=== PATIENT | male | born 1960 | race Caucasian/White ===

== ENCOUNTER 2017-01-18 15:06 | Inpatient (IN) | payer OTHER ==
[~2017-01-18] VITALS: Ht 182.9 cm; Wt 89.1 kg
--- NOTE | 2017-01-18 15:20 | ERD ---
ER Documentation Chief Complaint Chief Complaint Chest pain HPI This is a 56-year-old man with a history of hypertension, hyperlipidemia, coronary artery disease with previous TX status post stenting this year on aspirin and Plavix, intermittent recurrent chest pain and dyspnea that is causing him significant distress, who is now presenting with acute onset nonradiating moderate 6 out of 10 left-sided chest pain that began in the last day. He went to his clinic where an EKG was completed. There is concern of cardiac pathology. The patient was given full dose aspirin and an ambulance was called. Upon EMS arrival, the patient was also given 2 nitro sprays which brought his pain down from a 6 out of 10 to a 1 out of 10. The patient does also report dyspnea at rest that worsens with exertion. This is been ongoing since his heart attack. The patient denies feeling sick recently. The patient denies fever or chills. The patient has had no headache or vision changes. The patient does not endorse neck or back pain. The patient denies lightheadedness or dizziness. The patient denies nausea or vomiting. The patient denies abdominal pain or changes to bowel movements or urination. The patient has had no focal deficits. The patient has had no weakness or numbness or tingling to the face or extremities. ROS All systems reviewed and are negative except as per history of present illness. Allergies Allergies: Coded Allergies: Penicillins (Verified Allergy, Unknown, 01/18/17) PMhx/Soc History of Surgery: Yes (Cardiac stenting) Anesthesia Reaction: No Hx Neurological Disorder: No Hx Respiratory Disorders: Yes (pulmonary nodules) Hx Cardiac Disorders: Yes (Coronary artery disease, hypertension, hyperlipidemia) Hx Psychiatric Problems: No Hx Miscellaneous Medical Probl: No FmHx Family History: coronary disease Physical Exam Vitals Vital Signs Date Time Temp Pulse Resp B/P Pulse Ox O2 Delivery O2 Flow Rate FiO2 01/18/17 18:28 98.2 57 17 111/74 99 Nasal Cannula 01/18/17 16:15 59 16 116/75 97 Room Air 01/18/17 15:32 Nasal Cannula 2 01/18/17 15:31 98.1 75 16 126/74 96 Physical Exam Const: No apparent distress, well-developed, well-nourished Head: Normocephalic, Atraumatic Eyes: Normal Conjunctiva. Extraocular movements intact. Pupils equal, round and reactive to light ENT: Normal External Ears, Nose and Mouth. Neck: Full range of motion. No meningismus. Resp: Clear to auscultation bilaterally, No wheezes, rales or rhonchi Cardio: Regular rate and rhythm. No murmurs, rubs or gallops Abd: Soft, non tender, non distended. Normal bowel sounds Skin: No petechiae or rashes Back: No midline tenderness. No CVA tenderness Ext: No cyanosis, or edema Neur: Awake and alert, oriented 4. Cranial nerves intact. No facial droop. Normal strength, sensation and coordination. Psych: Normal Mood and Affect Result Diagram: 01/18/17 1520 01/18/17 1520 Results 24 hrs Laboratory Tests Test 01/18/17 15:20 White Blood Count 7.110^3/ul Red Blood Count 4.9610^6/ul Hemoglobin 16.3g/dl Hematocrit 47.1% Mean Corpuscular Volume 95.0fl Mean Corpuscular Hemoglobin 32.9pg Mean Corpuscular Hemoglobin Concent 34.6g/dl Red Cell Distribution Width 12.8% Platelet Count 02260^3/UL Mean Platelet Volume 10.4fl Neutrophils % 65.8% Lymphocytes % 27.2% Monocytes % 5.0% Eosinophils % 1.1% Basophils % 0.6% Nucleated Red Blood Cells % 0.0/100WBC Neutrophils # 4.710^3/ul Lymphocytes # 1.910^3/ul Monocytes # 0.410^3/ul Eosinophils # 0.110^3/ul Basophils # 0.010^3/ul Nucleated Red Blood Cells # 0.010^3/ul Prothrombin Time 12.1Sec Prothrombin Time Ratio 0.9 INR International Normalized Ratio 0.90 Activated Partial Thromboplast Time 24.9Sec Sodium Level 140mmol/L Potassium Level 4.0mmol/L Chloride Level 105mmol/L Carbon Dioxide Level 26mmol/L Anion Gap 13 Blood Urea Nitrogen 15mg/dl Creatinine 0.92mg/dl Glucose Level 88mg/dl Calcium Level 8.9mg/dl Total Bilirubin 0.4mg/dl Direct Bilirubin 0.00mg/dl Indirect Bilirubin 0.4mg/dl Aspartate Amino Transf (AST/SGOT) 29IU/L Alanine Aminotransferase (ALT/SGPT) 49IU/L Alkaline Phosphatase 79IU/L Troponin I < 0.012ng/ml B-Type Natriuretic Peptide 786PG/ML Total Protein 6.7g/dl Albumin 4.0g/dl Globulin 2.70g/dl Albumin/Globulin Ratio 1.48 Valproic Acid (Depakene) Level < 10ug/ml Current Medications Medications (Trade) Dose Ordered Sig/Zi Route PRN Reason Start Time Stop Time Status Last Admin Dose Admin Ondansetron HCl (Zofran Inj) 4 mg ER BRIDGE PRN IV NAUSEA AND/OR VOMITING 01/18/17 18:00 01/19/17 17:59 Acetaminophen 650 mg 650 mg ER BRIDGE PRN PO MILD PAIN/FEVER 01/18/17 18:00 01/19/17 17:59 Sodium Chloride (NS) 1,000 ml @ 50 mls/hr Q20H IV 01/18/17 18:08 01/18/17 19:02 IV Flush (NS 3 ml) 3 ml PER PROTOCOL IV 01/18/17 18:30 Ondansetron HCl (Zofran Inj) 4 mg Q6H PRN IV NAUSEA AND/OR VOMITING 01/18/17 18:30 Aspirin (Aspirin) 81 mg DAILY PO 01/19/17 09:00 Clopidogrel Bisulfate (plaVIX) 75 mg DAILY PO 01/18/17 18:30 01/18/17 19:02 Nitroglycerin (Nitroglycerin (Sl Tab) 0.4 Mg) 1 tab Q5M PRN SL CHEST PAIN 01/18/17 18:30 Acetaminophen (Tylenol Tab) 650 mg Q6H PRN PO PAIN LEVEL 1-3 OR FEVER 01/18/17 18:30 Acetaminophen/ Hydrocodone Bitart ([place] (5/325)) 1 tab Q6H PRN PO PAIN LEVEL 4-6 01/18/17 18:30 Morphine Sulfate (morphine) 2 mg Q4H PRN IV PAIN LEVEL 7-10 01/18/17 18:30 Docusate Sodium (Colace) 100 mg Q12H PRN PO CONSTIPATION 01/18/17 18:30 Bisacodyl (Dulcolax) 5 mg DAILY PRN PO CONSTIPATION 01/18/17 18:30 Pantoprazole (Protonix Tab) 40 mg DAILY@06 PO 01/19/17 06:00 Enoxaparin Sodium (Lovenox) 40 mg DAILY SC 01/19/17 09:00 Lisinopril (Zestril) 5 mg DAILY PO 01/18/17 18:30 Metoprolol Tartrate (Lopressor) 25 mg BID PO 01/18/17 21:00 Atorvastatin Calcium (Lipitor) 80 mg HS PO 01/18/17 21:00 Escitalopram Oxalate (Lexapro) 20 mg DAILY PO 01/19/17 09:00 Gabapentin (Neurontin) 300 mg TID PO 01/18/17 21:00 Albuterol/ Ipratropium (Duoneb) 3 ml Q6HWA RESP THERAPY HHN 01/18/17 20:00 Albuterol/ Ipratropium (Duoneb) 3 ml Q2H RESP THERAPY PRN HHN sob/wheezing 01/18/17 18:30 Procedures/MDM MDM The patient's presentation warrants further investigation. He requires a cardiac exam. He was already given full dose aspirin prior to arrival. He is also given nitro sprays with resolution of his symptoms. I do not believe that any further medical intervention is required emergently. However, the workup needs to be obtained which may change this disposition. LABS The patient's blood work was obtained and reviewed. The patient's CBC shows no leukocytosis and no left shift. The patient is afebrile and does not appear systemically ill. I do not suspect a systemic infection. The patient is not anemic today. The patient's platelet count is unremarkable. The patient's CMP shows no signs of metabolic or electrolyte emergencies. The patient has unremarkable renal and hepatic function testing. The patient's troponin is negative. The patient's BNP is mildly elevated, but I have low suspicion for heart failure. The patient does not have any rales clinically. There is no evidence of heart failure on x-ray. EKG Initial EKG read by me at 15:15: Rate/Rhythm: Normal rate, sinus rhythm with occasional PVCs and fusion complexes at 74 bpm. Intervals: Normal [place]: Normal Impression: Concern of biphasic T waves in V2 and V3, no previous EKG to compare to. EKG read by me at 16:54: Rate/Rhythm: Normal rate, sinus rhythm with occasional PVCs and fusion complexes at 74 bpm. Intervals: Normal [place]: Normal Impression: Concern of biphasic T waves in V2-4, but mostly unchanged from previous EKG performed today. IMAGING CXR There is mild atelectasis at the lung bases. Lungs are otherwise clear. The heart size is normal. There is no pleural effusion. There is no pneumothorax. Mild atelectasis at the lung bases. Otherwise unremarkable chest radiograph. Electronically viewed and signed by .Ihsan Gandhi MD, on 01/18/2017 15:44 TREATMENT/DISPOSITION Patient had already been given aspirin and nitro prior to arrival with significant improvement of his symptoms. At this time, I placed the patient's heart score at 5 for age, risk factors, moderate suspicion and nonspecific repolarization changes on the EKG. Unfortunately, I do not have any EKGs from his previous cardiac event to compare to. I did discuss the findings with Dr. Toledo, the print line tailer, who evaluated the initial EKG and felt that it represented likely old changes. However, she agreed that this required further evaluation in the hospital. I do not feel that the patient requires heparin or any further anticoagulation at this time. Serial EKGs and troponins will likely be required in the hospital. A cardiology consult will also be needed. This will be completed by the admitting service. At this time, I feel that the patient requires admission for further evaluation and management. The patient will be admitted to panel in accordance with the patient's insurance. The patient was accepted by Dr. Gordon John at 1744 on January 18, 2017. The patient's blood pressure was elevated at greater than 120/80 while in the emergency department. This did improve on its own. This may be further evaluated in the hospital. CRITICAL CARE NOTE Time: 30 minutes excluding all billable procedures. Treatments/Evaluations: Evaluation of the patient's medical record including previous records & current laboratory/imaging studies, close monitoring, potential interventions if hemodynamically unstable or cardiopulmonary decline or neurologic decline, maintaining tight fluid balance, any discussions with the family regarding the patient's status and prognosis. Disclaimer: Inadvertent spelling and grammatical errors are likely due to EHR/ dictation software use and do not reflect on the overall quality of patient care. Note that the electronic time recorded on this note does not necessarily reflect the actual time of the patient encounter. Departure Diagnosis: Primary Impression: Chest pain Chest pain type: unspecified Qualified Code: R07.9 - Chest pain, unspecified type Additional Impressions: History of myocardial infarction less than 8 weeks Dyspnea Dyspnea type: shortness of breath Qualified Code: R06.02 - Shortness of breath SAMSON (dyspnea on exertion) Condition: Serious JOSE HENDRICKSON MD Jan 18, 2017 15:20
[2017-01-18 15:31] VITALS: Ht 182.9 cm; Wt 89.1 kg
--- NOTE | 2017-01-18 15:44 | RADRPT ---
PROCEDURE: XR Chest. CLINICAL INDICATION: Chest pain. TECHNIQUE: Single frontal view. COMPARISON: None. FINDINGS: There is mild atelectasis at the lung bases. Lungs are otherwise clear. The heart size is normal. There is no pleural effusion. There is no pneumothorax. IMPRESSION: 1. Mild atelectasis at the lung bases. 2. Otherwise unremarkable chest radiograph. RPTAT: QQ .Ihsan Gandhi MD, MD Date Time Electronically viewed and signed by .Ihsan Gandhi MD, on 01/18/2017 15:44 .R/
[2017-01-18 15:47] LABS: BASOPHILS % 0.6 % (0.0-2.0); EOSINOPHILS # 0.1 10^3/ul (0.0-0.5); EOSINOPHILS % 1.1 % (0.0-7.0); HEMATOCRIT 47.1 % (42.0-52.0); HEMOGLOBIN 16.3 g/dl (14.0-18.0); LYMPHOCYTES # 1.9 10^3/ul (0.8-2.9); LYMPHOCYTES % 27.2 % (15.0-51.0); MEAN CORPUSCULAR HEMOGLOBIN 32.9 pg (29.0-33.0); MEAN CORPUSCULAR HGB CONC 34.6 g/dl (32.0-37.0); MEAN PLATELET VOLUME 10.4 fl (7.4-10.4); MONOCYTE # 0.4 10^3/ul (0.3-0.9); NEUTROPHIL # 4.7 10^3/ul (1.6-7.5); NEUTROPHILS % 65.8 % (39.0-77.0); PLATELET COUNT 200 10^3/UL (140-415); RED BLOOD COUNT 4.96 10^6/ul (4.70-6.10); RED CELL DISTRIBUTION WIDTH 12.8 % (11.5-14.5); WHITE BLOOD COUNT 7.1 10^3/ul (4.8-10.8)
[2017-01-18 16:13] LABS: ALANINE AMINOTRANSFERASE 49 IU/L (13-69); ALBUMIN/GLOBULIN RATIO 1.48; ALKALINE PHOSPHATASE 79 IU/L (42-121); ANION GAP 13 (8-16); ASPARTATE AMINO TRANSFERASE 29 IU/L (15-46); BILIRUBIN,INDIRECT 0.4 mg/dl (0-1.1); BILIRUBIN,TOTAL 0.4 mg/dl (0.2-1.3); BLOOD UREA NITROGEN 15 mg/dl (7-20); CALCIUM 8.9 mg/dl (8.4-10.2); CARBON DIOXIDE 26 mmol/L (21-31); CHLORIDE 105 mmol/L (97-110); CREATININE 0.92 mg/dl (0.61-1.24); GLUCOSE 88 mg/dl (70-220); SODIUM 140 mmol/L (135-144); TOTAL PROTEIN 6.7 g/dl (6.1-8.1)
[2017-01-18 16:24] LABS: B-TYPE NATRIURETIC PEPTIDE 786 PG/ML (0-125)
[2017-01-18 16:35] LABS: TROPONIN-I < 0.012 ng/ml (0.00-0.12)
[2017-01-18 16:44] LABS: INR 0.9; PARTIAL THROMBOPLASTIN TIME 24.9 Sec (25.0-35.0); PROTIME 12.1 Sec (12.2-14.2); PT RATIO 0.9
[2017-01-18] MEDS ORDERED: ACETAMINOPHEN 325 MG TAB PO PRN ×2 (18:00→18:30)
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
[2017-01-18 18:28] VITALS: TEMP 98.2
[2017-01-18] MEDS ORDERED: BISACODYL (EC) 5 MG TAB PO PRN (18:30)
[2017-01-18] MEDS ORDERED: morphine 2 MG INJ IV PRN (18:30)
[2017-01-18] MEDS ORDERED: NACL 0.9% 3 ML SYG IV SCH (18:30)
[2017-01-18] MEDS ORDERED: ONDANSETRON 4 MG INJ IV PRN (18:30)
[2017-01-18] MEDS ORDERED: ALBUTEROL/IPRATROPIUM (NEB) 3 ML AMP HHN PRN (18:30)
[2017-01-18] MEDS ORDERED: NITROGLYCERIN (SL) 0.4 MG TAB SL PRN (18:30)
[2017-01-18] MEDS ORDERED: DOCUSATE SODIUM 100 MG CAP PO PRN (18:30)
[2017-01-18] MEDS ORDERED: HYDROCODONE/APAP (5/325) TAB PO PRN (18:30)
[2017-01-18] MEDS: SOD CHLORIDE 0.9% 1,000 ML IV SCH (19:02)
[2017-01-18] MEDS: CLOPIDOGREL 75 MG TAB PO SCH (19:02)
[2017-01-18 19:30] VITALS: BP 129/84; PULSE 62; RESP 16
[2017-01-18] MEDS ORDERED: ATOR80TA75 PO (19:31)
[2017-01-18] MEDS ORDERED: LISI-313 PO (19:31)
[2017-01-18] MEDS ORDERED: GABA300C16 PO (19:31)
[2017-01-18] MEDS ORDERED: SIMV20TA PO (19:31)
[2017-01-18] MEDS ORDERED: METO-448 PO (19:31)
[2017-01-18] MEDS ORDERED: OMEP20CA16 PO (19:31)
[2017-01-18] MEDS ORDERED: IBUP-1542 PO (19:31)
[2017-01-18] MEDS ORDERED: ESCI20TA38 PO (19:31)
[2017-01-18 20:00] VITALS: PULSE 59
[2017-01-18] MEDS: ALBUTEROL/IPRATROPIUM (NEB) 3 ML AMP HHN SCH (20:21)
[2017-01-18] MEDS: METOPROLOL 25 MG TAB PO SCH (21:00)
[2017-01-18] MEDS ORDERED: AL HYDROX/MG HYDROX/SIMETH 30 ML CUP PO ONE (21:30)
[2017-01-18] MEDS: GABAPENTIN 300 MG CAP PO SCH (21:55)
[2017-01-18] MEDS: LISINOPRIL 5 MG TAB PO SCH (21:55)
[2017-01-18] MEDS: ATORVASTATIN 80 MG TAB PO SCH (22:25)
[2017-01-18 23:29] LABS: CK-MB 1.56 ng/ml (0.0-2.4)
[2017-01-18 23:33] LABS: TROPONIN-I 0.016 ng/ml (0.00-0.12)
[2017-01-19] VITALS (10 sets, daily range): BP systolic 90–118; BP diastolic 56–72; PULSE 46–70; RESP 16–65
[2017-01-19 03:16] LABS: BASOPHIL # 0.1 10^3/ul (0.0-0.1); BASOPHILS % 0.7 % (0.0-2.0); EOSINOPHILS # 0.2 10^3/ul (0.0-0.5); EOSINOPHILS % 2.5 % (0.0-7.0); HEMATOCRIT 45.1 % (42.0-52.0); HEMOGLOBIN 15.4 g/dl (14.0-18.0); LYMPHOCYTES # 2.3 10^3/ul (0.8-2.9); LYMPHOCYTES % 30.3 % (15.0-51.0); MEAN CORPUSCULAR HEMOGLOBIN 32.7 pg (29.0-33.0); MEAN CORPUSCULAR HGB CONC 34.1 g/dl (32.0-37.0); MEAN CORPUSCULAR VOLUME 95.8 fl (82.0-101.0); MEAN PLATELET VOLUME 10.2 fl (7.4-10.4); MONOCYTE # 0.5 10^3/ul (0.3-0.9); MONOCYTES % 6.4 % (0.0-11.0); NEUTROPHIL # 4.5 10^3/ul (1.6-7.5); NEUTROPHILS % 59.8 % (39.0-77.0); PLATELET COUNT 181 10^3/UL (140-415); RED BLOOD COUNT 4.71 10^6/ul (4.70-6.10); RED CELL DISTRIBUTION WIDTH 12.8 % (11.5-14.5); WHITE BLOOD COUNT 7.5 10^3/ul (4.8-10.8)
[2017-01-19 03:38] LABS: ALBUMIN 3.5 g/dl (3.3-4.9); ALBUMIN/GLOBULIN RATIO 1.29; BILIRUBIN,INDIRECT 0.5 mg/dl (0-1.1); BILIRUBIN,TOTAL 0.5 mg/dl (0.2-1.3); CALCIUM 8.5 mg/dl (8.4-10.2); CHOL/HDL RATIO 5.8 RATIO; CREATININE 0.89 mg/dl (0.61-1.24); POTASSIUM 3.6 mmol/L (3.5-5.1); TOTAL PROTEIN 6.2 g/dl (6.1-8.1)
[2017-01-19 03:49] LABS: TROPONIN-I 0.018 ng/ml (0.00-0.12)
[2017-01-19 03:55] LABS: CK-MB 1.33 ng/ml (0.0-2.4)
[2017-01-19 04:33] LABS: THYROID STIMULATING HORMONE 0.741 MIU/L (0.465-4.680)
[2017-01-19] MEDS: PANTOPRAZOLE (EC) 40 MG TAB PO SCH (06:46)
[2017-01-19] MEDS: ALBUTEROL/IPRATROPIUM (NEB) 3 ML AMP HHN SCH ×3 (08:00→19:44)
[2017-01-19] MEDS: LISINOPRIL 5 MG TAB PO SCH (08:43)
[2017-01-19] MEDS: GABAPENTIN 300 MG CAP PO SCH ×3 (08:43→22:52)
[2017-01-19] MEDS: ASPIRIN 81 MG TAB PO SCH (08:43)
[2017-01-19] MEDS: ENOXAPARIN 40 MG/0.4 ML SYG SC SCH (08:48)
[2017-01-19] MEDS: METOPROLOL 25 MG TAB PO SCH (09:00)
[2017-01-19] MEDS: CLOPIDOGREL 75 MG TAB PO SCH (09:33)
[2017-01-19] MEDS: ESCITALOPRAM 10 MG TAB PO SCH (09:33)
[2017-01-19] MEDS ORDERED: LORAZEPAM 2 MG INJ IV PRN (12:00)
[2017-01-19] MEDS: ONDANSETRON 4 MG INJ IV PRN ×2 (13:09→15:28)
[2017-01-19] MEDS ORDERED: BARIUM SULF 2% 450 ML BTL (BERRY SMOOTHIE) PO ONE (14:00)
--- NOTE | 2017-01-19 15:03 | PN ---
Date/Time of Note Date/Time of Note DATE: 01/19/17 TIME: 15:01 Assessment/Plan VTE Prophylaxis VTE Prophylaxis Intervention: LMWH Lines/Catheters IV Catheter Type (from Nrsg): [place] Assessment/Plan Chief Complaint/Hosp Course s: patient dose not have chest pain, but does have new onset right lower quadrant abdominal pain, which he thinks is from sleeping on his side o: Physical exam General: Patient is laying in bed and answers questions appropriately Mentation: Patient is alert and oriented 4, Head: Normocephalic atraumatic Eyes: EOMI, pupils reactive to light Neck: Supple, nontender, midline Respiratory: Clear to auscultation bilaterally Cardiovascular: regular rate, no obvious murmurs Gastrointestinal: RLQ tender to deep palpation. L sided inguinal hernia non tender Neurological: Moves all extremities spontaneously Skin: No new skin lesions Patient is a 56-year-old Bangl[place] male who presents for persistent chest pain status post cardiac cath last month at [facility] Assessment and plan Chest pain -Patient's persistent chest pain is unlikely ACS, however will rule out, troponins trending, currently negative, cardiology consulted -Restart home cardiac meds as appropriate -Echo pending -Monitor closely on telemetry bradycardia -asymptomatic, but monitor -cardiology recs abdominal pain -unsure, musculoskeletal vs visceral -CT abdomen/pelvis ordered Dyslipidemia -Atorvastatin Shortness of breath -Related to chest pain, breathing treatments as necessary Nausea and vomiting -Resolved Mood disorder, depression -Continue Lexapro -HPI from patient's primary care office states Depakote use, however not on medication list, and negative depakote level, will hold for now. GERD -Continue pantoprazole Hypertension -Continue medications Problems: Exam/Review of Systems Vital Signs Vitals Vital Signs Date Time Temp Pulse Resp B/P Pulse Ox O2 Delivery O2 Flow Rate FiO2 01/19/17 13:26 46 01/19/17 12:00 97.5 19 113/72 97 Nasal Cannula 2.0 Results Result Diagram: 01/19/1731101/19/17311 Results 24 hrs Laboratory Tests Test 01/18/17 15:20 01/18/17 21:58 01/19/17 03:12 01/19/17 12:52 White Blood Count 7.1 7.5 Red Blood Count 4.96 4.71 Hemoglobin 16.3 15.4 Hematocrit 47.1 45.1 Mean Corpuscular Volume 95.0 95.8 Mean Corpuscular Hemoglobin 32.9 32.7 Mean Corpuscular Hemoglobin Concent 34.6 34.1 Red Cell Distribution Width 12.8 12.8 Platelet Count 200 181 Mean Platelet Volume 10.4 10.2 Neutrophils % 65.8 59.8 Lymphocytes % 27.2 30.3 Monocytes % 5.0 6.4 Eosinophils % 1.1 2.5 Basophils % 0.6 0.7 Nucleated Red Blood Cells % 0.0 0.0 Neutrophils # 4.7 4.5 Lymphocytes # 1.9 2.3 Monocytes # 0.4 0.5 Eosinophils # 0.1 0.2 Basophils # 0.0 0.1 Nucleated Red Blood Cells # 0.0 0.0 Prothrombin Time 12.1 L Prothrombin Time Ratio 0.9 INR International Normalized Ratio 0.90 Activated Partial Thromboplast Time 24.9 L Sodium Level 140 139 Potassium Level 4.0 3.6 Chloride Level 105 106 Carbon Dioxide Level 26 24 Anion Gap 13 13 Blood Urea Nitrogen 15 16 Creatinine 0.92 0.89 Glucose Level 88 90 Calcium Level 8.9 8.5 Total Bilirubin 0.4 0.5 Direct Bilirubin 0.00 0.00 Indirect Bilirubin 0.4 0.5 Aspartate Amino Transf (AST/SGOT) 29 26 Alanine Aminotransferase (ALT/SGPT) 49 42 Alkaline Phosphatase 79 75 Troponin I < 0.012 0.016 0.018 B-Type Natriuretic Peptide 786 H Total Protein 6.7 6.2 Albumin 4.0 3.5 Globulin 2.70 2.70 Albumin/Globulin Ratio 1.48 1.29 Valproic Acid (Depakene) Level < 10 L Creatine Kinase 58 59 Creatine Kinase Index 2.7 2.3 Creatinine Kinase MB (Mass) 1.56 1.33 Hemoglobin A1c 5.3 Triglycerides Level 122 Cholesterol Level 215 H LDL Cholesterol, Calculated 154 HDL Cholesterol 37 Cholesterol/HDL Ratio 5.8 Thyroid Stimulating Hormone (TSH) 0.741 Bedside Glucose 86 Medications Medications Current Medications Sodium Chloride (NS) 1,000 ml @ 50 mls/hr Q20H IV Last administered on t 19:02; Admin Dose 50 MLS/HR; Start 01/18/17 at 18:08 Ondansetron HCl (Zofran Inj) 4 mg Q6H PRN IV NAUSEA AND/OR VOMITING; Start at 18:30 Aspirin (Aspirin) 81 mg DAILY PO Last administered on 01/19/17 08:43; Admin Dose 81 MG; Start 01/19/17 at 09:00 Clopidogrel Bisulfate (plaVIX) 75 mg DAILY PO Last administered on 01/19/17 09:33; Admin Dose 75 MG; Start 01/18/17 at 18:30 Nitroglycerin (Nitroglycerin (Sl Tab) 0.4 Mg) 1 tab Q5M PRN SL CHEST PAIN; Start 01/18/17 at 18:30 Acetaminophen (Tylenol Tab) 650 mg Q6H PRN PO PAIN LEVEL 1-3 OR FEVER; Start 01/18/17 at 18:30 Acetaminophen/ Hydrocodone Bitart ([place] (5/325)) 1 tab Q6H PRN PO PAIN LEVEL 4 -6; Start 01/18/17 at 18:30 Morphine Sulfate (morphine) 2 mg Q4H PRN IV PAIN LEVEL 7-10 Last administered on 01/19/17 12:27; Admin Dose 2 MG; Start 01/18/17 at 18:30 Docusate Sodium (Colace) 100 mg Q12H PRN PO CONSTIPATION; Start 01/18/17 at 18 :30 Bisacodyl (Dulcolax) 5 mg DAILY PRN PO CONSTIPATION; Start 01/18/17 at 18:30 Pantoprazole (Protonix Tab) 40 mg DAILY@06 PO Last administered on 01/19/17 06:46; Admin Dose 40 MG; Start 01/19/17 at 06:00 Enoxaparin Sodium (Lovenox) 40 mg DAILY SC Last administered on 01/19/17 08: 48; Admin Dose 40 MG; Start 01/19/17 at 09:00 Lisinopril (Zestril) 5 mg DAILY PO Last administered on 01/19/17 08:43; Admin Dose 5 MG; Start 01/18/17 at 18:30 Metoprolol Tartrate (Lopressor) 25 mg BID PO ; Start 01/18/17 at 21:00 Atorvastatin Calcium (Lipitor) 80 mg HS PO Last administered on 01/18/17 22: 25; Admin Dose 80 MG; Start 01/18/17 at 21:00 Escitalopram Oxalate (Lexapro) 20 mg DAILY PO Last administered on 01/19/17 09:33; Admin Dose 20 MG; Start 01/19/17 at 09:00 Gabapentin (Neurontin) 300 mg TID PO Last administered on 01/19/17 12:26; Admin Dose 300 MG; Start 01/18/17 at 21:00 Lorazepam (Ativan) 0.5 mg Q8H PRN IV anxiety; Start 01/19/17 at 12:00 REDDY GOMES Jan 19, 2017 15:03
[2017-01-19] MEDS: SOD CHLORIDE 0.9% 1,000 ML IV SCH (15:29)
[2017-01-19] MEDS ORDERED: MAGNESIUM SULFATE 1 GM/D5W 100 ML IVPB ONE (15:30)
[2017-01-19] MEDS ORDERED: POTASSIUM CHLORIDE 250 ML IVPB ONE (15:30)
--- NOTE | 2017-01-19 17:05 | CONS ---
DATE OF ADMISSION: 01/18/2017 DATE OF CONSULTATION: 01/19/2017 CARDIOLOGY CONSULTATION REASON FOR CONSULTATION: Chest pain, assess for acute coronary syndrome. REQUESTING PHYSICIAN: Dr. Mann from the hospitalist service. HISTORY OF PRESENT ILLNESS: Mr. Chino is a 56-year-old male with a history of inguinal hernia, dyslipidemia, borderline diabetes, recent acute myocardial infarction, status post PTCA and stent p lacement at [facility] 11/2016, hypertension, psych disorder, who initially presented with complai nts of substernal chest pain as well as abdominal pain occurring at rest with associated shortness o f breath. Upon arrival in the emergency department, temperature 98.1, blood pressure 126/74, pulse 75, respirations 16, saturating 96%. The patient's labs revealed sodium 140, potassium 4.0, creatin ine 0.92, BUN 15. Troponin negative. BNP is 786. INR 0.9. The patient's chest x-ray revealed mil d atelectasis at the lung bases, otherwise unremarkable chest radiograph. Patient's electrocardiogr am had revealed sinus rhythm at 74, normal axis, borderline increased QT correct interval, frequent PACs and aberrantly conducted supraventricular beats, anteroseptal Q's with deep anterior T-wave inv ersions. The patient subsequently has been admitted to the floor and since admitted to the floor, h as had 2 further troponins return negative for a total of 3 negative troponins. Patient at this veronica e continues to complain of chest pain and abdominal pain with associated nausea, vomiting. PAST MEDICAL HISTORY: As above in HPI. MEDICATIONS CURRENTLY IN HOSPITAL: 1. Ativan 0.5 mg p.r.n. 2. Aspirin 81 mg daily. 3. Lovenox subQ daily. 4. Plavix 75 mg daily. 5. Lexapro 20 mg daily. 6. Protonix 40 mg daily. 7. Lopressor 25 mg p.o. b.i.d. 8. Atorvastatin 80 mg at bedtime. 9. Gabapentin 300 mg p.o. t.i.d. 10. DuoNeb. 11. Sublingual nitroglycerin p.r.n. 12. Tylenol p.r.n. 13. Dulcolax p.r.n. 14. Zestril 5 mg p.o. daily. ALLERGIES: PENICILLIN. SOCIAL HISTORY: Positive tobacco, social ETOH, no illicit drug use. FAMILY HISTORY: No history of sudden cardiac or early CAD. REVIEW OF SYSTEMS: As above in HPI. CONSTITUTIONAL: No fevers, chills. PULMONARY: No current shortness of breath. CARDIOVASCULAR: Chest pain. GASTROINTESTINAL: Abdominal pain, nausea. GENITOURINARY: No hematuria. MUSCULOSKELETAL: Degenerative joint disease. PSYCHIATRIC: Positive psych history. NEUROLOGIC: No documented CVA. PHYSICAL EXAMINATION VITAL SIGNS: Temperature 97.5, blood pressure most recently 132/72, pulse in the 50s, saturating 96 % on 2 liters. GENERAL: The patient is alert, awake, complaining of chest pain and abdominal pain. NECK: JVP approximately 9 cm of water. CHEST: Fair air movement throughout. HEART: Bradycardic, regular rhythm. Normal S1, S2, I/ systolic murmur, nondisplaced PMI. ABDOMEN: Positive bowel sounds, soft. EXTREMITIES: No edema, 1+ pulses bilaterally, posterior tibial. LABORATORIES: As above in HPI with most recently from today, sodium 139, potassium 3.6, creatinine 0.89, BUN 16. Troponin negative x3. LDL 154, HDL 37. White blood cell count 7.5, hemoglobin 10, h ematocrit 14, platelet count 181. Tox screen negative. IMAGING STUDIES: Chest x-ray from revealing mild atelectasis at the lung base, otherwise unrem arkable study. ELECTROCARDIOGRAM: As above in HPI. No further electrocardiograms for my review at this time. IMPRESSION: 1. Chest pain, assess for acute coronary syndrome. 2. Abnormal electrocardiogram with anteroseptal Q's and deep T-wave inversions anteriorly. 3. Status post recent left heart catheterization with percutaneous transluminal coronary angioplast y and stent placement at [facility]. 4. Status post recent myocardial infarction for which he received percutaneous transluminal coronar y angioplasty and stent placement at [facility] in the last month. 5. Hypertension. 6. Bradycardia. 7. Premature ventricular contractions. RECOMMENDATIONS: 1. At this time, would maintain the patient on telemetry monitoring. 2. Follow rhythm and rate closely. 3. We will check a 2D echo to further assess patient's ejection fraction, wall motion and any major valve abnormalities. 4. Continue the patient's low dose beta kasey as tolerated. 5. Continue the patient's HUSEYIN inhibitor as tolerated. 6. We will initiate the patient on low dose oral nitrates and follow symptomatology. 7. Continue the patient's high dose statin and adjust it according to a fasting lipid panel to be c hecked. 8. We will obtain the patient's recent cath report from [facility] to assess the patient's govea ry vasculature with possible need for cardiac stress test. Thank you for allowing me to take part in the care of this patient. I will continue to follow very closely with you. Recommendations will be made as the patient progresses through his inpatient hosp ital clinical course. Dictated By: NILAM VELASQUEZ/LEXI Conf#: [id number] DID#: [id number] CC: REDDY GOMES MD; JOSS MANN;*End*
--- NOTE | 2017-01-19 17:47 | RADRPT ---
Echocardiogram Report Patient Name: REDDY BERRY Gender: Male Date: 1960 Study Date: 19-Jan-2017 Fishing Boat Captain: [place] Location: 3308-A Ref. Physician: REDDY GOMES Quality: Adequate Procedures: Transthoracic echocardiogram with complete 2D, M-Mode, and doppler examination. Indications: Chest Pain. 2D/M Mode Doppler Measurement Value Normal Ranges Measurement Value Normal Ranges LVIDd 2D 4.8 3.5 - 5.6 cm AV Peak David 1.0 m/sec LVIDs 2D 3.1 2.1 - 4.1 cm AV Peak PG 4.0 mmHg FS 2D 35.5 % LVOT Peak David 1.0 m/sec LVPWd 2D 1.2 0.6 - 1.1 cm LVOT Peak PG 4.0 mmHg IVSd 2D 1.2 0.6 - 1.1 cm MV E Peak David 0.8 m/sec IVS/LVPW 2D 1.0 MV A Peak David 0.4 m/sec AoR Diam 2D 3.4 2.0 - 3.7 cm MV E/A 2.2 LA/Ao 2D 1 0 - 1 MV Decel Time 215 msec EDV 2D 114.0 cm3 MV E/A 2.2 ESV 2D 30.7 cm3 TR Peak David 2.6 m/sec LA Dimen 2D 4.0 2.3 - 4.0 cm TR Peak PG 26.0 mmHg RVSP 34.0 mmHg Findings Left Ventricle: Normal left ventricular cavity size. Left ventricular wall thickness upper limits of normal. Mild left ventricular systolic dysfunction. Ejection fraction is visually estimated at 4045 %. Abnormal Diastolic Function. These segments of the LV are hypokinetic apex. Right Ventricle: Normal right ventricular size. Normal right ventricular systolic function. Left Atrium: The left atrium is normal in size. Right Atrium: The right atrium is normal in size. Mitral Valve: Mild mitral leaflet calcification. Mild mitral annular calcification. Trace mitral regurgitation. Aortic Valve: Normal appearance of the aortic valve. No significant aortic stenosis or insufficiency. Tricuspid Valve: Normal appearance of the tricuspid valve. Estimated peak PA systolic pressure 34 mmHg. There is mild tricuspid regurgitation. Pulmonic Valve: Pulmonic valve not well visualized. There is trace pulmonic regurgitation. Pericardium: Normal pericardium with no significant pericardial effusion. Aorta: Normal aortic root. IVC: Normal size with poor respiratory collapse consistent with elevated right atrial pressure. Conclusions 1.Normal left ventricular cavity size. Left ventricular wall thickness upper limits of normal. Mild left ventricular systolic dysfunction. Ejection fraction is visually estimated at 40-45 %. Abnormal Diastolic Function. These segments of the LV are hypokinetic apex. 2.Mild mitral leaflet calcification. Mild mitral annular calcification. Trace mitral regurgitation. 3.Normal appearance of the tricuspid valve. Estimated peak PA systolic pressure 34 mmHg. There is mild tricuspid regurgitation. 4.Pulmonic valve not well visualized. There is trace pulmonic regurgitation. Electronically Signed By: Dallin Brar 19-Jan-2017 17:46:28 -0800 Patient Name: REDDY BERRY Study Date: 19-Jan-2017 [id number]
[2017-01-19] MEDS: ATORVASTATIN 80 MG TAB PO SCH (22:51)
[2017-01-19] MEDS: ISOSORBIDE DINITRATE 10 MG TAB PO SCH (22:52)
[2017-01-20] VITALS (11 sets, daily range): BP systolic 94–103; BP diastolic 55–68; PULSE 65–73; RESP 16–21
[2017-01-20 06:53] LABS: BASOPHILS % 0.4 % (0.0-2.0); EOSINOPHILS # 0.2 10^3/ul (0.0-0.5); EOSINOPHILS % 1.7 % (0.0-7.0); HEMATOCRIT 41.9 % (42.0-52.0); HEMOGLOBIN 14.5 g/dl (14.0-18.0); LYMPHOCYTES # 1.9 10^3/ul (0.8-2.9); LYMPHOCYTES % 20.1 % (15.0-51.0); MEAN CORPUSCULAR HGB CONC 34.6 g/dl (32.0-37.0); MEAN CORPUSCULAR VOLUME 95.4 fl (82.0-101.0); MEAN PLATELET VOLUME 10.6 fl (7.4-10.4); MONOCYTE # 0.6 10^3/ul (0.3-0.9); MONOCYTES % 6.7 % (0.0-11.0); NEUTROPHIL # 6.6 10^3/ul (1.6-7.5); NEUTROPHILS % 70.9 % (39.0-77.0); PLATELET COUNT 168 10^3/UL (140-415); RED BLOOD COUNT 4.39 10^6/ul (4.70-6.10); WHITE BLOOD COUNT 9.3 10^3/ul (4.8-10.8)
[2017-01-20] MEDS: PANTOPRAZOLE (EC) 40 MG TAB PO SCH (06:53)
[2017-01-20 07:20] LABS: CALCIUM 8.4 mg/dl (8.4-10.2); CREATININE 0.98 mg/dl (0.61-1.24); MAGNESIUM 1.9 mg/dl (1.7-2.5); PHOSPHORUS 3.9 mg/dl (2.5-4.9); POTASSIUM 3.9 mmol/L (3.5-5.1)
[2017-01-20] MEDS: ALBUTEROL/IPRATROPIUM (NEB) 3 ML AMP HHN SCH ×3 (08:48→20:07)
[2017-01-20] MEDS: LISINOPRIL 5 MG TAB PO SCH (09:00)
[2017-01-20] MEDS: ISOSORBIDE DINITRATE 10 MG TAB PO SCH ×3 (09:00→21:00)
[2017-01-20] MEDS: ENOXAPARIN 40 MG/0.4 ML SYG SC SCH (09:15)
[2017-01-20] MEDS: CLOPIDOGREL 75 MG TAB PO SCH (09:23)
[2017-01-20] MEDS: ESCITALOPRAM 10 MG TAB PO SCH (09:23)
[2017-01-20] MEDS: GABAPENTIN 300 MG CAP PO SCH ×3 (09:23→21:24)
[2017-01-20] MEDS: ASPIRIN 81 MG TAB PO SCH (09:24)
--- NOTE | 2017-01-20 12:09 | PN ---
Date/Time of Note Date/Time of Note DATE: 01/20/17 TIME: 12:07 Assessment/Plan VTE Prophylaxis VTE Prophylaxis Intervention: ambulation, SCD's Lines/Catheters IV Catheter Type (from Nrsg): Saline Lock Assessment/Plan Chief Complaint/Hosp Course s: 01.19: patient dose not have chest pain, but does have new onset right lower quadrant abdominal pain, which he thinks is from sleeping on his side 01.20: abdominal pain is much better, but still present with touch o: Physical exam General: Patient is laying in bed and answers questions appropriately Mentation: Patient is alert and oriented 4, Head: Normocephalic atraumatic Eyes: EOMI, pupils reactive to light Neck: Supple, nontender, midline Respiratory: Clear to auscultation bilaterally Cardiovascular: regular rate, no obvious murmurs Gastrointestinal: RLQ tender to deep palpation. L sided inguinal hernia non tender Neurological: Moves all extremities spontaneously Skin: No new skin lesions Patient is a 56-year-old [place]ian male who presents for persistent chest pain status post cardiac cath last month at [facility] Assessment and plan Chest pain -Patient's persistent chest pain is unlikely ACS, however will rule out, troponins trending, currently negative, cardiology consulted -Restart home cardiac meds as appropriate -Echo per cardiology -started on nitrate per cardiology -HTN medication adjustment per cardiology -Monitor closely on telemetry bradycardia -asymptomatic, but monitor -cardiology recs abdominal pain -unsure, musculoskeletal vs visceral -CT abdomen/pelvis ordered, not done yesterday Dyslipidemia -Atorvastatin Shortness of breath -Related to chest pain, breathing treatments as necessary Nausea and vomiting -Resolved Mood disorder, depression -Continue Lexapro -HPI from patient's primary care office states Depakote use, however not on medication list, and negative depakote level, will hold for now. GERD -Continue pantoprazole Hypertension -Continue medications DISPO: -pending cardiology recs -pending CT scan Problems: Exam/Review of Systems Vital Signs Vitals Vital Signs Date Time Temp Pulse Resp B/P Pulse Ox O2 Delivery O2 Flow Rate FiO2 01/20/17 11:16 97.9 62 16 94/55 97 01/20/17 08:49 1.0 01/20/17 08:48 Nasal Cannula Intake and Output 01/19/17 01/19/17 01/20/17 15:00 23:00 07:00 Intake Total 300 ml Balance 300 ml Results Result Diagram: 01/20/17 0632 01/20/17 0631 Results 24 hrs Laboratory Tests Test 01/19/17 12:52 01/19/17 15:56 01/20/17 06:31 01/20/17 06:32 Bedside Glucose 86 Magnesium Level 1.9 1.9 Sodium Level 137 Potassium Level 3.9 Chloride Level 103 Carbon Dioxide Level 28 Anion Gap 10 Blood Urea Nitrogen 13 Creatinine 0.98 Glucose Level 90 Calcium Level 8.4 Phosphorus Level 3.9 Troponin I 0.022 White Blood Count 9.3 # Red Blood Count 4.39 L Hemoglobin 14.5 Hematocrit 41.9 L Mean Corpuscular Volume 95.4 Mean Corpuscular Hemoglobin 33.0 Mean Corpuscular Hemoglobin Concent 34.6 Red Cell Distribution Width 13.0 Platelet Count 168 Mean Platelet Volume 10.6 H Neutrophils % 70.9 Lymphocytes % 20.1 Monocytes % 6.7 Eosinophils % 1.7 Basophils % 0.4 Nucleated Red Blood Cells % 0.0 Neutrophils # 6.6 Lymphocytes # 1.9 Monocytes # 0.6 Eosinophils # 0.2 Basophils # 0.0 Nucleated Red Blood Cells # 0.0 Medications Medications Current Medications Ondansetron HCl (Zofran Inj) 4 mg Q6H PRN IV NAUSEA AND/OR VOMITING; Start at 18:30 Aspirin (Aspirin) 81 mg DAILY PO Last administered on 01/20/17 09:24; Admin Dose 81 MG; Start 01/19/17 at 09:00 Clopidogrel Bisulfate (plaVIX) 75 mg DAILY PO Last administered on 01/20/17 09:23; Admin Dose 75 MG; Start 01/18/17 at 18:30 Nitroglycerin (Nitroglycerin (Sl Tab) 0.4 Mg) 1 tab Q5M PRN SL CHEST PAIN; Start 01/18/17 at 18:30 Acetaminophen (Tylenol Tab) 650 mg Q6H PRN PO PAIN LEVEL 1-3 OR FEVER; Start 01/18/17 at 18:30 Acetaminophen/ Hydrocodone Bitart ([place] (5/325)) 1 tab Q6H PRN PO PAIN LEVEL 4 -6; Start 01/18/17 at 18:30 Morphine Sulfate (morphine) 2 mg Q4H PRN IV PAIN LEVEL 7-10 Last administered on 01/19/17 12:27; Admin Dose 2 MG; Start 01/18/17 at 18:30 Docusate Sodium (Colace) 100 mg Q12H PRN PO CONSTIPATION; Start 01/18/17 at 18 :30 Bisacodyl (Dulcolax) 5 mg DAILY PRN PO CONSTIPATION; Start 01/18/17 at 18:30 Pantoprazole (Protonix Tab) 40 mg DAILY@06 PO Last administered on 01/20/17 06:53; Admin Dose 40 MG; Start 01/19/17 at 06:00 Enoxaparin Sodium (Lovenox) 40 mg DAILY SC Last administered on 01/20/17 09: 15; Admin Dose 40 MG; Start 01/19/17 at 09:00 Atorvastatin Calcium (Lipitor) 80 mg HS PO Last administered on 01/19/17 22: 51; Admin Dose 80 MG; Start 01/18/17 at 21:00 Escitalopram Oxalate (Lexapro) 20 mg DAILY PO Last administered on 01/20/17 09:23; Admin Dose 20 MG; Start 01/19/17 at 09:00 Gabapentin (Neurontin) 300 mg TID PO Last administered on 01/20/17 09:23; Admin Dose 300 MG; Start 01/18/17 at 21:00 Lorazepam (Ativan) 0.5 mg Q8H PRN IV anxiety; Start 01/19/17 at 12:00 Lisinopril (Zestril) 2.5 mg DAILY PO ; Start 01/20/17 at 09:00 Isosorbide Dinitrate (Isordil) 10 mg TID PO Last administered on 01/19/17 22: 52; Admin Dose 10 MG; Start 01/19/17 at 21:00 Carvedilol (Coreg) 3.125 mg BID PO Last administered on 01/19/17 22:51; Admin Dose 3.125 MG; Start 01/19/17 at 21:00 Influenza Virus Vaccine (Fluzone) 0.5 ml ONCE ONCE IM* ; Start 01/21/17 at 10: 00; Stop 01/21/17 at 10:01 REDDY GOMES Jan 20, 2017 12:09
--- NOTE | 2017-01-20 13:57 | CONS ---
Date/Time of Note Date/Time of Note DATE: 01/20/17 TIME: 13:55 Assessment/Plan Assessment/Plan Additional Assessment/Plan 1. Chest pain, assess for acute coronary syndrome- no CP now, will med Rx for now. 2. Abnormal electrocardiogram with anteroseptal Q's and deep T-wave inversions anteriorly- in good fluid status. 3. Status post recent left heart catheterization with percutaneous transluminal coronary angioplasty and stent placement at [facility].Dr. Brar aware. 4. Status post recent myocardial infarction for which he received percutaneous transluminal coronary angioplasty and stent placement at [facility] in the last month. 5. Hypertension- well rx now. 6. Bradycardia- sinus, no indication for pacing. 7. Premature ventricular contractions. Consultation Date/Type/Reason Admit Date/Time Jan 18, 2017 at 17:46 Initial Consult Date 24 HR Interval Summary Free Text/Dictation NO acute events - rate controlled - no indication for pacing now. ROS: No fever, no chills, no nausea, no vomiting, no diarrhea/constipation No recent weight changes No chest pain, no PND, no orthopnea No dizziness, blurred vision No thirst, no heat or cold intolerance Exam/Review of Systems Vital Signs Vitals Vital Signs Date Time Temp Pulse Resp B/P Pulse Ox O2 Delivery O2 Flow Rate FiO2 01/20/17 13:42 1.0 01/20/17 13:39 59 18 95 Nasal Cannula 01/20/17 11:16 97.9 94/55 Intake and Output 01/19/17 01/19/17 01/20/17 15:00 23:00 07:00 Intake Total 300 ml Balance 300 ml Exam General: WN/WD/NAD, AOx 3 HEENT: Unicetric/atraumatic/EOMI (follow commands) NECK: JVD elevated, no thyromegaly Lymph: no lymphadenopathy HEART: regular with no S3, II/ systolic murmur at apex LUNGS: Coarse sounds ABD: soft, NT, ND, +BS : Intact Neuro: non focal SKIN: chronic changes EXT: trace edema Results Result Diagram: 01/20/17 0632 01/20/17 0631 Results 24 hrs Laboratory Tests Test 01/19/17 15:56 01/20/17 06:31 01/20/17 06:32 Magnesium Level 1.9 1.9 Sodium Level 137 Potassium Level 3.9 Chloride Level 103 Carbon Dioxide Level 28 Anion Gap 10 Blood Urea Nitrogen 13 Creatinine 0.98 Glucose Level 90 Calcium Level 8.4 Phosphorus Level 3.9 Troponin I 0.022 White Blood Count 9.3 # Red Blood Count 4.39 L Hemoglobin 14.5 Hematocrit 41.9 L Mean Corpuscular Volume 95.4 Mean Corpuscular Hemoglobin 33.0 Mean Corpuscular Hemoglobin Concent 34.6 Red Cell Distribution Width 13.0 Platelet Count 168 Mean Platelet Volume 10.6 H Neutrophils % 70.9 Lymphocytes % 20.1 Monocytes % 6.7 Eosinophils % 1.7 Basophils % 0.4 Nucleated Red Blood Cells % 0.0 Neutrophils # 6.6 Lymphocytes # 1.9 Monocytes # 0.6 Eosinophils # 0.2 Basophils # 0.0 Nucleated Red Blood Cells # 0.0 Medications Medications Current Medications Ondansetron HCl (Zofran Inj) 4 mg Q6H PRN IV NAUSEA AND/OR VOMITING; Start at 18:30 Aspirin (Aspirin) 81 mg DAILY PO Last administered on 01/20/17 09:24; Admin Dose 81 MG; Start 01/19/17 at 09:00 Clopidogrel Bisulfate (plaVIX) 75 mg DAILY PO Last administered on 01/20/17 09:23; Admin Dose 75 MG; Start 01/18/17 at 18:30 Nitroglycerin (Nitroglycerin (Sl Tab) 0.4 Mg) 1 tab Q5M PRN SL CHEST PAIN; Start 01/18/17 at 18:30 Acetaminophen (Tylenol Tab) 650 mg Q6H PRN PO PAIN LEVEL 1-3 OR FEVER; Start 01/18/17 at 18:30 Acetaminophen/ Hydrocodone Bitart ([place] (5/325)) 1 tab Q6H PRN PO PAIN LEVEL 4 -6; Start 01/18/17 at 18:30 Morphine Sulfate (morphine) 2 mg Q4H PRN IV PAIN LEVEL 7-10 Last administered on 01/19/17 12:27; Admin Dose 2 MG; Start 01/18/17 at 18:30 Docusate Sodium (Colace) 100 mg Q12H PRN PO CONSTIPATION; Start 01/18/17 at 18 :30 Bisacodyl (Dulcolax) 5 mg DAILY PRN PO CONSTIPATION; Start 01/18/17 at 18:30 Pantoprazole (Protonix Tab) 40 mg DAILY@06 PO Last administered on 01/20/17 06:53; Admin Dose 40 MG; Start 01/19/17 at 06:00 Enoxaparin Sodium (Lovenox) 40 mg DAILY SC Last administered on 01/20/17 09: 15; Admin Dose 40 MG; Start 01/19/17 at 09:00 Atorvastatin Calcium (Lipitor) 80 mg HS PO Last administered on 01/19/17 22: 51; Admin Dose 80 MG; Start 01/18/17 at 21:00 Escitalopram Oxalate (Lexapro) 20 mg DAILY PO Last administered on 01/20/17 09:23; Admin Dose 20 MG; Start 01/19/17 at 09:00 Gabapentin (Neurontin) 300 mg TID PO Last administered on 01/20/17 09:23; Admin Dose 300 MG; Start 01/18/17 at 21:00 Lorazepam (Ativan) 0.5 mg Q8H PRN IV anxiety; Start 01/19/17 at 12:00 Lisinopril (Zestril) 2.5 mg DAILY PO ; Start 01/20/17 at 09:00 Isosorbide Dinitrate (Isordil) 10 mg TID PO Last administered on 01/19/17 22: 52; Admin Dose 10 MG; Start 01/19/17 at 21:00 Carvedilol (Coreg) 3.125 mg BID PO Last administered on 01/19/17 22:51; Admin Dose 3.125 MG; Start 01/19/17 at 21:00 Influenza Virus Vaccine (Fluzone) 0.5 ml ONCE ONCE IM* ; Start 01/21/17 at 10: 00; Stop 01/21/17 at 10:01 SCOTT HARMON MD Jan 20, 2017 13:57
[2017-01-20] MEDS ORDERED: IOHEXOL 300MG/ML 150 ML BTL ONE (14:28)
[2017-01-20] MEDS ORDERED: SOD CHLORIDE 0.9% 0 ML ONE (14:28)
[2017-01-20] MEDS: ATORVASTATIN 80 MG TAB PO SCH (21:24)
[2017-01-21] VITALS (12 sets, daily range): BP systolic 96–118; BP diastolic 53–70; PULSE 50–67; RESP 17–18
--- NOTE | 2017-01-21 02:30 | RADRPT ---
PROCEDURE: CT Abdomen and Pelvis without contrast. CLINICAL INDICATION: Left-sided inguinal hernia, new onset right lower quadrant pain. TECHNIQUE: CT scan of the abdomen and pelvis was performed on a multidetector high-resolution CT scanner. The patient was scanned without intravenous contrast. Coronal and sagittal reformatted imag es were obtained from the axial source images. Images [facility] The total exam CTDI equals 12.25 mGy and the total exam DLP equals 797.25 mGy-cm. DICOM images are available. One or more of the following dose reduction techniques were used: - Automated exposure control. - Adjustment of the mA and/or kV according to patient size. - Use of iterative reconstruction technique. COMPARISON: None. FINDINGS: CT Abdomen and Pelvis: Lung bases: There is medial right middle lobe and bilateral lower lobe scar or discoid atelectasis. Bibasilar dependent subsegmental atelectasis is noted. There is a trace right-sided pleural effusio n. The heart is normal in size. There is no evidence of a pericardial effusion. Solid organs: The liver, spleen, pancreas, and adrenal glands are unremarkable. Biliary: Multiple gallstones present within a nondistended gallbladder. There are no adjacent mesen teric inflammatory changes. Further evaluation with ultrasound is recommended.. No evidence of intra or extrahepatic biliary ductal dilatation. GI: There is a small hiatal hernia. The small bowel is not significantly distended. A large left in guinal hernia contains non distended small bowel extends into the scrotal sac. There is no evidence of a small bowel obstruction. No CT findings to suggest incarceration are demonstrated. Residual bar ium is present throughout the colon. No pericolonic inflammatory changes are present. There is moder ate residual fecal matter within the rectum consistent with constipation. The appendix is not seen. : No evidence of hydronephrosis or solid space occupying renal mass. A circumscribed 12 mm low at tenuation lesion is present within the lateral mid right kidney. Further evaluation with renal ultra sound is recommended The urinary bladder is unremarkable. Peritoneum: No evidence of ascites or pneumoperitoneum. Lymph nodes: Shoddy retroperitoneal and bilateral inguinal lymphadenopathy is demonstrated none of w hich are significant in size by CT criteria. Vascular: No evidence of an abdominal aortic aneurysm. A variation left retroaortic renal vein is n oted. Osseous structures: No acute fracture. Multilevel moderately severe disc space loss involving L1-L2 through L5-S1. Sclerotic endplate changes of the inferior L1, the inferior and superior L3 and L4 l evels respectively. IMPRESSION: 1. Large left inguinal hernia containing nondistended small bowel extending into the scrotal sac. Th ere is no evidence of a small bowel obstruction. 2. Small hiatal hernia. 3. Circumscribed 12 mm hyperdense lesion within the lateral mid right kidney for which further eval uation with renal ultrasound is recommended. 4. Medial right middle and bilateral lower lobe scar or discoid atelectasis. Trace right-sided pleu ral effusion. 5. Constipation. 6. Shoddy retroperitoneal and bilateral inguinal lymphadenopathy. 7. Moderate spondylotic changes L1-L2 through L5-S1. RPTAT: HRSR Physician Felton Date Time Electronically viewed and signed by Physician Felton on 01/21/2017 02:30 RR/
[2017-01-21] MEDS: PANTOPRAZOLE (EC) 40 MG TAB PO SCH (06:06)
[2017-01-21] MEDS: ALBUTEROL/IPRATROPIUM (NEB) 3 ML AMP HHN SCH ×3 (08:00→20:00)
[2017-01-21] MEDS: ISOSORBIDE DINITRATE 10 MG TAB PO SCH ×3 (08:50→22:08)
[2017-01-21] MEDS: CLOPIDOGREL 75 MG TAB PO SCH (08:51)
[2017-01-21] MEDS: ESCITALOPRAM 10 MG TAB PO SCH (08:51)
[2017-01-21] MEDS: GABAPENTIN 300 MG CAP PO SCH ×3 (08:52→22:12)
[2017-01-21] MEDS: ASPIRIN 81 MG TAB PO SCH (08:52)
[2017-01-21] MEDS: LISINOPRIL 5 MG TAB PO SCH (08:52)
[2017-01-21 08:55] LABS: BASOPHILS % 0.5 % (0.0-2.0); EOSINOPHILS # 0.2 10^3/ul (0.0-0.5); EOSINOPHILS % 2.2 % (0.0-7.0); HEMATOCRIT 44.3 % (42.0-52.0); HEMOGLOBIN 15.1 g/dl (14.0-18.0); LYMPHOCYTES # 2.4 10^3/ul (0.8-2.9); MEAN CORPUSCULAR HEMOGLOBIN 32.7 pg (29.0-33.0); MEAN CORPUSCULAR HGB CONC 34.1 g/dl (32.0-37.0); MEAN CORPUSCULAR VOLUME 95.9 fl (82.0-101.0); MEAN PLATELET VOLUME 10.7 fl (7.4-10.4); MONOCYTE # 0.6 10^3/ul (0.3-0.9); MONOCYTES % 7.2 % (0.0-11.0); NEUTROPHIL # 5.5 10^3/ul (1.6-7.5); NEUTROPHILS % 62.9 % (39.0-77.0); PLATELET COUNT 181 10^3/UL (140-415); RED BLOOD COUNT 4.62 10^6/ul (4.70-6.10); WHITE BLOOD COUNT 8.7 10^3/ul (4.8-10.8)
[2017-01-21] MEDS: ENOXAPARIN 40 MG/0.4 ML SYG SC SCH (08:55)
[2017-01-21 09:14] LABS: CALCIUM 8.8 mg/dl (8.4-10.2); CREATININE 1.02 mg/dl (0.61-1.24); MAGNESIUM 1.9 mg/dl (1.7-2.5); PHOSPHORUS 3.5 mg/dl (2.5-4.9); POTASSIUM 3.7 mmol/L (3.5-5.1)
[2017-01-21] MEDS ORDERED: INFLUENZA VIRUS VACCINE 0.5 ML (DISPENSING) IM* ONE (10:00)
--- NOTE | 2017-01-21 11:40 | RADRPT ---
PROCEDURE: US kidney CLINICAL INDICATION: Right kidney abnormality seen on recent CT scan TECHNIQUE: Multiple real-time images were acquired COMPARISON: Abdomen/pelvis unenhanced CT 01/20/2017 FINDINGS: The right kidney measures 11.8 cm in length. The left kidney measures 10.8 cm in length. 1.9 x 1.8 x 1.6 cm right kidney interpolar hypoechoic finding may have slight increased through ayala smission; this finding slightly bulges the kidney surface and most likely corresponds to the abnorma lity seen on the recent CT scan. Nearly isoechoic focal bulging of the left kidney interpolar region is not seen as having abnormal attenuation on the recent CT scan and thus could represent a dromeda ry hump. Of note, kidney stones may not be visualized by sonography. No abnormal perirenal fluid collections seen. No hydronephrosis seen. Limited images of the partially distended bladder reveal no significant abnormalities. IMPRESSION: 1. Right kidney small hypoechoic finding most likely corresponds to the abnormality seen on the rec ent CT scan; this finding does not meet strict sonographic criteria of a simple cyst and thus is ind eterminate. 2. Left kidney interpolar nearly isoechoic focal bulging, possibly a dromedary hump. If older corresponding studies are unavailable, a contrast-enhanced kidney CT or MR scan is recommen ded for further analysis. RPTAT: TT Physician Frances Date Time Electronically viewed and signed by Anthony Hernandez Physician on 01/21/2017 11:40 TRAN/
--- NOTE | 2017-01-21 12:02 | PN ---
Date/Time of Note Date/Time of Note DATE: 01/21/17 TIME: 11:57 Assessment/Plan VTE Prophylaxis VTE Prophylaxis Intervention: ambulation, SCD's Lines/Catheters IV Catheter Type (from Nrsg): Saline Lock Assessment/Plan Chief Complaint/Hosp Course s: .22: patient dose not have chest pain, but does have new onset right lower quadrant abdominal pain, which he thinks is from sleeping on his side 11.23: abdominal pain is much better, but still present with touch 11.24 much improved abdominal pain, mild nausea still present o: Physical exam General: Patient is laying in bed and answers questions appropriately Mentation: Patient is alert and oriented 4, Head: Normocephalic atraumatic Eyes: EOMI, pupils reactive to light Neck: Supple, nontender, midline Respiratory: Clear to auscultation bilaterally Cardiovascular: regular rate, no obvious murmurs Gastrointestinal: RLQ mildly tender to deep palpation. L sided inguinal hernia non tender Neurological: Moves all extremities spontaneously Skin: No new skin lesions Patient is a 56-year-old [place] male who presents for persistent chest pain status post cardiac cath last month at [facility] Assessment and plan Chest pain -Patient's persistent chest pain is unlikely ACS, however will rule out, troponins trending, currently negative, cardiology consulted -Restart home cardiac meds as appropriate -Echo per cardiology -started on nitrate per cardiology -HTN medication adjustment per cardiology -Monitor closely on telemetry bradycardia -asymptomatic, but monitor -cardiology recs abdominal pain -unsure, musculoskeletal vs visceral -CT abdomen/pelvis does not show any discrete findings, ? kidney issues -US kidney shows indeterminate findings, -patient allergic to contrast apparently, will speak to patient for possible MRI with contrast of abdomen Dyslipidemia -Atorvastatin Shortness of breath -Related to chest pain, breathing treatments as necessary Nausea and vomiting -Resolved Mood disorder, depression -Continue Lexapro -HPI from patient's primary care office states Depakote use, however not on medication list, and negative depakote level, will hold for now. GERD/hiatal hernia -Continue pantoprazole Hypertension -Continue medications DISPO: -pending cardiology recs Problems: Exam/Review of Systems Vital Signs Vitals Vital Signs Date Time Temp Pulse Resp B/P Pulse Ox O2 Delivery O2 Flow Rate FiO2 01/21/17 08:47 21 01/21/17 08:31 60 01/21/17 08:22 98.6 17 100/64 99 01/20/17 13:42 1.0 01/20/17 13:39 Nasal Cannula Intake and Output 01/20/17 01/20/17 01/21/17 14:59 22:59 06:59 Intake Total 1100 ml 600 ml Output Total 900 ml Balance 200 ml 600 ml Results Result Diagram: 01/21/17 0741 01/21/17 0741 Results 24 hrs Laboratory Tests Test 01/21/17 07:41 White Blood Count 8.7 Red Blood Count 4.62 L Hemoglobin 15.1 Hematocrit 44.3 Mean Corpuscular Volume 95.9 Mean Corpuscular Hemoglobin 32.7 Mean Corpuscular Hemoglobin Concent 34.1 Red Cell Distribution Width 13.0 Platelet Count 181 Mean Platelet Volume 10.7 H Neutrophils % 62.9 Lymphocytes % 27.0 Monocytes % 7.2 Eosinophils % 2.2 Basophils % 0.5 Nucleated Red Blood Cells % 0.0 Neutrophils # 5.5 Lymphocytes # 2.4 Monocytes # 0.6 Eosinophils # 0.2 Basophils # 0.0 Nucleated Red Blood Cells # 0.0 Sodium Level 138 Potassium Level 3.7 Chloride Level 101 Carbon Dioxide Level 30 Anion Gap 11 Blood Urea Nitrogen 17 Creatinine 1.02 Glucose Level 87 Calcium Level 8.8 Phosphorus Level 3.5 Magnesium Level 1.9 Medications Medications Current Medications Ondansetron HCl (Zofran Inj) 4 mg Q6H PRN IV NAUSEA AND/OR VOMITING; Start at 18:30 Aspirin (Aspirin) 81 mg DAILY PO Last administered on 01/21/17 08:52; Admin Dose 81 MG; Start 01/19/17 at 09:00 Clopidogrel Bisulfate (plaVIX) 75 mg DAILY PO Last administered on 01/21/17 08:51; Admin Dose 75 MG; Start 01/18/17 at 18:30 Nitroglycerin (Nitroglycerin (Sl Tab) 0.4 Mg) 1 tab Q5M PRN SL CHEST PAIN; Start 01/18/17 at 18:30 Acetaminophen (Tylenol Tab) 650 mg Q6H PRN PO PAIN LEVEL 1-3 OR FEVER; Start 01/18/17 at 18:30 Acetaminophen/ Hydrocodone Bitart ([place] (5/325)) 1 tab Q6H PRN PO PAIN LEVEL 4 -6; Start 01/18/17 at 18:30 Morphine Sulfate (morphine) 2 mg Q4H PRN IV PAIN LEVEL 7-10 Last administered on 01/19/17 12:27; Admin Dose 2 MG; Start 01/18/17 at 18:30 Docusate Sodium (Colace) 100 mg Q12H PRN PO CONSTIPATION; Start 01/18/17 at 18 :30 Bisacodyl (Dulcolax) 5 mg DAILY PRN PO CONSTIPATION; Start 01/18/17 at 18:30 Pantoprazole (Protonix Tab) 40 mg DAILY@06 PO Last administered on 01/21/17 06:06; Admin Dose 40 MG; Start 01/19/17 at 06:00 Enoxaparin Sodium (Lovenox) 40 mg DAILY SC Last administered on 01/21/17 08: 55; Admin Dose 40 MG; Start 01/19/17 at 09:00 Atorvastatin Calcium (Lipitor) 80 mg HS PO Last administered on 01/20/17 21: 24; Admin Dose 80 MG; Start 01/18/17 at 21:00 Escitalopram Oxalate (Lexapro) 20 mg DAILY PO Last administered on 01/21/17 08:51; Admin Dose 20 MG; Start 01/19/17 at 09:00 Gabapentin (Neurontin) 300 mg TID PO Last administered on 01/21/17 08:52; Admin Dose 300 MG; Start 01/18/17 at 21:00 Lorazepam (Ativan) 0.5 mg Q8H PRN IV anxiety; Start 01/19/17 at 12:00 Lisinopril (Zestril) 2.5 mg DAILY PO Last administered on 01/21/17 08:52; Admin Dose 2.5 MG; Start 01/20/17 at 09:00 Isosorbide Dinitrate (Isordil) 10 mg TID PO Last administered on 01/19/17 22: 52; Admin Dose 10 MG; Start 01/19/17 at 21:00 Carvedilol (Coreg) 3.125 mg BID PO Last administered on 01/20/17 21:25; Admin Dose 3.125 MG; Start 01/19/17 at 21:00 REDDY GOMES Jan 21, 2017 12:02
--- NOTE | 2017-01-21 13:55 | CONS ---
Date/Time of Note Date/Time of Note DATE: 01/21/17 TIME: 13:54 Assessment/Plan Assessment/Plan Additional Assessment/Plan 1. Chest pain, assess for acute coronary syndrome- no CP now, will med Rx for now. R/IO [place] - no intervention planned now. 2. Abnormal electrocardiogram with anteroseptal Q's and deep T-wave inversions anteriorly- in good fluid status. 3. Status post recent left heart catheterization with percutaneous transluminal coronary angioplasty and stent placement at [facility].Dr. Brar aware. Med therapy advised. 4. Status post recent myocardial infarction for which he received percutaneous transluminal coronary angioplasty and stent placement at [facility] in the last month. 5. Hypertension- well rx now. In good BP range now. 6. Bradycardia- sinus, no indication for pacing. 7. Premature ventricular contractions. Consultation Date/Type/Reason Admit Date/Time Jan 18, 2017 at 17:46 24 HR Interval Summary Free Text/Dictation NO acute events - BP in good range - no CP now. ROS: No fever, no chills, no nausea, no vomiting, no diarrhea/constipation No recent weight changes No chest pain, no PND, no orthopnea No dizziness, blurred vision No thirst, no heat or cold intolerance Exam/Review of Systems Vital Signs Vitals Vital Signs Date Time Temp Pulse Resp B/P Pulse Ox O2 Delivery O2 Flow Rate FiO2 01/21/17 13:17 61 16 94 21 01/21/17 08:22 98.6 100/64 01/20/17 13:42 1.0 01/20/17 13:39 Nasal Cannula Intake and Output 01/20/17 01/20/17 01/21/17 15:00 23:00 07:00 Intake Total 1100 ml 600 ml Output Total 900 ml Balance 200 ml 600 ml Exam General: WN/WD/NAD, AOx 2-3 HEENT: Unicetric/atraumatic/EOMI (follows commands) NECK: JVD elevated, no thyromegaly Lymph: no lymphadenopathy HEART: regular with no S3, II/ systolic murmur at apex LUNGS: Coarse sounds ABD: soft, NT, ND, +BS : Intact Neuro: non focal SKIN: chronic changes EXT: trace edema Results Result Diagram: 01/21/1741 01/21/17 0741 Results 24 hrs Laboratory Tests Test 01/21/17 07:41 White Blood Count 8.7 Red Blood Count 4.62 L Hemoglobin 15.1 Hematocrit 44.3 Mean Corpuscular Volume 95.9 Mean Corpuscular Hemoglobin 32.7 Mean Corpuscular Hemoglobin Concent 34.1 Red Cell Distribution Width 13.0 Platelet Count 181 Mean Platelet Volume 10.7 H Neutrophils % 62.9 Lymphocytes % 27.0 Monocytes % 7.2 Eosinophils % 2.2 Basophils % 0.5 Nucleated Red Blood Cells % 0.0 Neutrophils # 5.5 Lymphocytes # 2.4 Monocytes # 0.6 Eosinophils # 0.2 Basophils # 0.0 Nucleated Red Blood Cells # 0.0 Sodium Level 138 Potassium Level 3.7 Chloride Level 101 Carbon Dioxide Level 30 Anion Gap 11 Blood Urea Nitrogen 17 Creatinine 1.02 Glucose Level 87 Calcium Level 8.8 Phosphorus Level 3.5 Magnesium Level 1.9 Medications Medications Current Medications Ondansetron HCl (Zofran Inj) 4 mg Q6H PRN IV NAUSEA AND/OR VOMITING; Start at 18:30 Aspirin (Aspirin) 81 mg DAILY PO Last administered on 01/21/17 08:52; Admin Dose 81 MG; Start 01/19/17 at 09:00 Clopidogrel Bisulfate (plaVIX) 75 mg DAILY PO Last administered on 01/21/17 08:51; Admin Dose 75 MG; Start 01/18/17 at 18:30 Nitroglycerin (Nitroglycerin (Sl Tab) 0.4 Mg) 1 tab Q5M PRN SL CHEST PAIN; Start 01/18/17 at 18:30 Acetaminophen (Tylenol Tab) 650 mg Q6H PRN PO PAIN LEVEL 1-3 OR FEVER; Start 01/18/17 at 18:30 Acetaminophen/ Hydrocodone Bitart ([place] (5/325)) 1 tab Q6H PRN PO PAIN LEVEL 4 -6; Start 01/18/17 at 18:30 Morphine Sulfate (morphine) 2 mg Q4H PRN IV PAIN LEVEL 7-10 Last administered on 01/19/17 12:27; Admin Dose 2 MG; Start 01/18/17 at 18:30 Docusate Sodium (Colace) 100 mg Q12H PRN PO CONSTIPATION; Start 01/18/17 at 18 :30 Bisacodyl (Dulcolax) 5 mg DAILY PRN PO CONSTIPATION; Start 01/18/17 at 18:30 Pantoprazole (Protonix Tab) 40 mg DAILY@06 PO Last administered on 01/21/17 06:06; Admin Dose 40 MG; Start 01/19/17 at 06:00 Enoxaparin Sodium (Lovenox) 40 mg DAILY SC Last administered on 01/21/17 08: 55; Admin Dose 40 MG; Start 01/19/17 at 09:00 Atorvastatin Calcium (Lipitor) 80 mg HS PO Last administered on 01/20/17 21: 24; Admin Dose 80 MG; Start 01/18/17 at 21:00 Escitalopram Oxalate (Lexapro) 20 mg DAILY PO Last administered on 01/21/17 08:51; Admin Dose 20 MG; Start 01/19/17 at 09:00 Gabapentin (Neurontin) 300 mg TID PO Last administered on 01/21/17 08:52; Admin Dose 300 MG; Start 01/18/17 at 21:00 Lorazepam (Ativan) 0.5 mg Q8H PRN IV anxiety; Start 01/19/17 at 12:00 Lisinopril (Zestril) 2.5 mg DAILY PO Last administered on 01/21/17 08:52; Admin Dose 2.5 MG; Start 01/20/17 at 09:00 Isosorbide Dinitrate (Isordil) 10 mg TID PO Last administered on 01/19/17 22: 52; Admin Dose 10 MG; Start 01/19/17 at 21:00 Carvedilol (Coreg) 3.125 mg BID PO Last administered on 01/20/17 21:25; Admin Dose 3.125 MG; Start 01/19/17 at 21:00 SCOTT HARMON MD Jan 21, 2017 13:55
--- NOTE | 2017-01-21 16:10 | RADRPT ---
Vent Rate: 65 bpm RR Interval: 0 msec NM Interval: 156 msec QRS Duration: 100 msec QT Interval: 422 msec QTC Interval: 438 msec P-R-T [place] [facility]: 54 - 43 - 65 degrees Sinus rhythm with premature atrial complexes Anteroseptal infarct , age undetermined Abnormal ECG Electronically Signed By: Torres Bernabe [id number]
[2017-01-21] MEDS: SUCRALFATE (100 MG/ML) 10ML CUP PO SCH ×2 (18:44→22:12)
[2017-01-21] MEDS: ATORVASTATIN 80 MG TAB PO SCH (22:10)
[2017-01-22] VITALS (11 sets, daily range): BP systolic 104–122; BP diastolic 53–75; PULSE 55–60; RESP 16–18
[2017-01-22] MEDS: PANTOPRAZOLE (EC) 40 MG TAB PO SCH (06:01)
[2017-01-22 07:33] LABS: BASOPHILS % 0.4 % (0.0-2.0); EOSINOPHILS # 0.3 10^3/ul (0.0-0.5); EOSINOPHILS % 2.7 % (0.0-7.0); HEMATOCRIT 46.4 % (42.0-52.0); HEMOGLOBIN 15.8 g/dl (14.0-18.0); LYMPHOCYTES # 2.2 10^3/ul (0.8-2.9); LYMPHOCYTES % 23.2 % (15.0-51.0); MEAN CORPUSCULAR HEMOGLOBIN 32.8 pg (29.0-33.0); MEAN CORPUSCULAR HGB CONC 34.1 g/dl (32.0-37.0); MEAN CORPUSCULAR VOLUME 96.3 fl (82.0-101.0); MEAN PLATELET VOLUME 10.7 fl (7.4-10.4); MONOCYTE # 0.6 10^3/ul (0.3-0.9); MONOCYTES % 6.7 % (0.0-11.0); NEUTROPHIL # 6.2 10^3/ul (1.6-7.5); NEUTROPHILS % 66.6 % (39.0-77.0); PLATELET COUNT 194 10^3/UL (140-415); RED BLOOD COUNT 4.82 10^6/ul (4.70-6.10); WHITE BLOOD COUNT 9.3 10^3/ul (4.8-10.8)
[2017-01-22 07:59] LABS: CALCIUM 8.9 mg/dl (8.4-10.2); CREATININE 1.15 mg/dl (0.61-1.24)
[2017-01-22] MEDS: ALBUTEROL/IPRATROPIUM (NEB) 3 ML AMP HHN SCH ×3 (08:00→20:36)
[2017-01-22] MEDS: ESCITALOPRAM 10 MG TAB PO SCH (08:23)
[2017-01-22] MEDS: ASPIRIN 81 MG TAB PO SCH (08:23)
[2017-01-22] MEDS: GABAPENTIN 300 MG CAP PO SCH ×3 (08:23→22:01)
[2017-01-22] MEDS: LISINOPRIL 5 MG TAB PO SCH (08:23)
[2017-01-22] MEDS: CLOPIDOGREL 75 MG TAB PO SCH (08:23)
[2017-01-22] MEDS: ISOSORBIDE DINITRATE 10 MG TAB PO SCH ×3 (08:24→22:01)
[2017-01-22] MEDS: ENOXAPARIN 40 MG/0.4 ML SYG SC SCH (08:26)
[2017-01-22] MEDS: SUCRALFATE (100 MG/ML) 10ML CUP PO SCH ×4 (08:31→21:00)
--- NOTE | 2017-01-22 11:04 | CONS ---
Date/Time of Note Date/Time of Note DATE: 01/22/17 TIME: 10:54 Assessment/Plan Assessment/Plan Additional Assessment/Plan 1. Chest pain, assess for acute coronary syndrome- no CP now, will med Rx for now. R/IO [place] - no intervention planned now. Still with chest pain - will add Renexa now. 2. Abnormal electrocardiogram with anteroseptal Q's and deep T-wave inversions anteriorly- in good fluid status. DOUBT AMI. 3. Status post recent left heart catheterization with percutaneous transluminal coronary angioplasty and stent placement at [facility].Dr. Brar aware. Med therapy advised. 4. Status post recent myocardial infarction for which he received percutaneous transluminal coronary angioplasty and stent placement at [facility] in the last month. 5. Hypertension- well rx now. In good BP range now. BETTER now. 6. Bradycardia- sinus, no indication for pacing. 7. Premature ventricular contractions. Consultation Date/Type/Reason Admit Date/Time Jan 18, 2017 at 17:46 24 HR Interval Summary Free Text/Dictation NO acute events - still with intermittent CP. ROS: No fever, no chills, no nausea, no vomiting, no diarrhea/constipation No recent weight changes No chest pain, no PND, no orthopnea No dizziness, blurred vision No thirst, no heat or cold intolerance Exam/Review of Systems Vital Signs Vitals Vital Signs Date Time Temp Pulse Resp B/P Pulse Ox O2 Delivery O2 Flow Rate FiO2 01/22/17 08:10 57 01/22/17 07:48 98.3 18 108/61 98 01/22/17 00:00 Room Air 01/21/17 13:17 21 01/20/17 13:42 1.0 Intake and Output 01/21/17 01/21/17 01/22/17 15:00 23:00 07:00 Intake Total 1000 ml 500 ml Output Total 800 ml Balance 200 ml 500 ml Exam General: WN/WD/NAD, AOx 3 HEENT: Unicetric/atraumatic/EOMI (follows commands) NECK: JVD elevated, no thyromegaly Lymph: no lymphadenopathy HEART: regular with no S3, II/ systolic murmur at apex LUNGS: Coarse sounds ABD: soft, NT, ND, +BS : Intact Neuro: non focal SKIN: chronic changes EXT: trace edema Results Result Diagram: 01/22/17 0650 01/22/17 0650 Results 24 hrs Laboratory Tests Test 01/22/17 06:50 White Blood Count 9.3 Red Blood Count 4.82 Hemoglobin 15.8 Hematocrit 46.4 Mean Corpuscular Volume 96.3 Mean Corpuscular Hemoglobin 32.8 Mean Corpuscular Hemoglobin Concent 34.1 Red Cell Distribution Width 13.0 Platelet Count 194 Mean Platelet Volume 10.7 H Neutrophils % 66.6 Lymphocytes % 23.2 Monocytes % 6.7 Eosinophils % 2.7 Basophils % 0.4 Nucleated Red Blood Cells % 0.0 Neutrophils # 6.2 Lymphocytes # 2.2 Monocytes # 0.6 Eosinophils # 0.3 Basophils # 0.0 Nucleated Red Blood Cells # 0.0 Sodium Level 141 Potassium Level 4.0 Chloride Level 102 Carbon Dioxide Level 30 Anion Gap 13 Blood Urea Nitrogen 15 Creatinine 1.15 Glucose Level 90 Calcium Level 8.9 Phosphorus Level 4.0 Magnesium Level 2.0 Medications Medications Current Medications Ondansetron HCl (Zofran Inj) 4 mg Q6H PRN IV NAUSEA AND/OR VOMITING; Start at 18:30 Aspirin (Aspirin) 81 mg DAILY PO Last administered on 01/22/17 08:23; Admin Dose 81 MG; Start 01/19/17 at 09:00 Clopidogrel Bisulfate (plaVIX) 75 mg DAILY PO Last administered on 01/22/17 08:23; Admin Dose 75 MG; Start 01/18/17 at 18:30 Nitroglycerin (Nitroglycerin (Sl Tab) 0.4 Mg) 1 tab Q5M PRN SL CHEST PAIN; Start 01/18/17 at 18:30 Acetaminophen (Tylenol Tab) 650 mg Q6H PRN PO PAIN LEVEL 1-3 OR FEVER; Start 01/18/17 at 18:30 Acetaminophen/ Hydrocodone Bitart ([place] (5/325)) 1 tab Q6H PRN PO PAIN LEVEL 4 -6; Start 01/18/17 at 18:30 Morphine Sulfate (morphine) 2 mg Q4H PRN IV PAIN LEVEL 7-10 Last administered on 01/19/17 12:27; Admin Dose 2 MG; Start 01/18/17 at 18:30 Docusate Sodium (Colace) 100 mg Q12H PRN PO CONSTIPATION; Start 01/18/17 at 18 :30 Bisacodyl (Dulcolax) 5 mg DAILY PRN PO CONSTIPATION; Start 01/18/17 at 18:30 Pantoprazole (Protonix Tab) 40 mg DAILY@06 PO Last administered on 01/22/17 06:01; Admin Dose 40 MG; Start 01/19/17 at 06:00 Enoxaparin Sodium (Lovenox) 40 mg DAILY SC Last administered on 01/22/17 08: 26; Admin Dose 40 MG; Start 01/19/17 at 09:00 Atorvastatin Calcium (Lipitor) 80 mg HS PO Last administered on 01/21/17 22: 10; Admin Dose 80 MG; Start 01/18/17 at 21:00 Escitalopram Oxalate (Lexapro) 20 mg DAILY PO Last administered on 01/22/17 08:23; Admin Dose 20 MG; Start 01/19/17 at 09:00 Gabapentin (Neurontin) 300 mg TID PO Last administered on 01/22/17 08:23; Admin Dose 300 MG; Start 01/18/17 at 21:00 Lorazepam (Ativan) 0.5 mg Q8H PRN IV anxiety; Start 01/19/17 at 12:00 Lisinopril (Zestril) 2.5 mg DAILY PO Last administered on 01/22/17 08:23; Admin Dose 2.5 MG; Start 01/20/17 at 09:00 Isosorbide Dinitrate (Isordil) 10 mg TID PO Last administered on 01/22/17 08: 24; Admin Dose 10 MG; Start 01/19/17 at 21:00 Carvedilol (Coreg) 3.125 mg BID PO Last administered on 01/20/17 21:25; Admin Dose 3.125 MG; Start 01/19/17 at 21:00 Sucralfate (Carafate Susp) 1 gm QID PO Last administered on 01/21/17 22:12; Admin Dose 1 GM; Start 01/21/17 at 17:00 SCOTT HARMON MD Jan 22, 2017 11:03
--- NOTE | 2017-01-22 12:53 | PN ---
Date/Time of Note Date/Time of Note DATE: 01/22/17 TIME: 12:50 Assessment/Plan VTE Prophylaxis VTE Prophylaxis Intervention: SCD's Lines/Catheters IV Catheter Type (from Nrsg): Saline Lock Assessment/Plan Chief Complaint/Hosp Course s: 11.22: patient dose not have chest pain, but does have new onset right lower quadrant abdominal pain, which he thinks is from sleeping on his side 11.23: abdominal pain is much better, but still present with touch 11.24 much improved abdominal pain, mild nausea still present 11.25 still has occasional chest pressure o: Physical exam General: Patient is laying in bed and answers questions appropriately Mentation: Patient is alert and oriented 4, Head: Normocephalic atraumatic Eyes: EOMI, pupils reactive to light Neck: Supple, nontender, midline Respiratory: Clear to auscultation bilaterally Cardiovascular: regular rate, no obvious murmurs Gastrointestinal: RLQ mildly tender to deep palpation. L sided inguinal hernia non tender Neurological: Moves all extremities spontaneously Skin: No new skin lesions Patient is a 56-year-old [place] male who presents for persistent chest pain status post cardiac cath last month at [facility] Assessment and plan Chest pain -Patient's persistent chest pain is unlikely ACS, however will rule out, troponins trending, currently negative, cardiology consulted -Restart home cardiac meds as appropriate -Echo per cardiology -started on nitrate per cardiology, but switched to ranexa -HTN medication adjustment per cardiology -Monitor closely on telemetry bradycardia -asymptomatic, but monitor -cardiology recs abdominal pain -unsure, musculoskeletal vs visceral -CT abdomen/pelvis does not show any discrete findings, ? kidney issues -US kidney shows indeterminate findings, -patient allergic to contrast apparently, patient wishes to follow up with outpatient MRI instead of getting it done here Dyslipidemia -Atorvastatin Shortness of breath -Related to chest pain, breathing treatments as necessary Nausea and vomiting -Resolved Mood disorder, depression -Continue Lexapro -HPI from patient's primary care office states Depakote use, however not on medication list, and negative depakote level, will hold for now. GERD/hiatal hernia -Continue pantoprazole Hypertension -Continue medications DISPO: -pending cardiology recs -DC tomorrow after ranexa trial, unsure if it is available per formulary, may have to DC with nitrates Problems: Exam/Review of Systems Vital Signs Vitals Vital Signs Date Time Temp Pulse Resp B/P Pulse Ox O2 Delivery O2 Flow Rate FiO2 01/22/17 12:08 55 01/22/17 11:23 98.3 18 108/62 98 01/22/17 00:00 Room Air 01/21/17 13:17 21 01/20/17 13:42 1.0 Intake and Output 01/21/17 01/21/17 01/22/17 15:00 23:00 07:00 Intake Total 1000 ml 500 ml Output Total 800 ml Balance 200 ml 500 ml Results Result Diagram: 01/22/17 0650 01/22/17 0650 Results 24 hrs Laboratory Tests Test 01/22/17 06:50 White Blood Count 9.3 Red Blood Count 4.82 Hemoglobin 15.8 Hematocrit 46.4 Mean Corpuscular Volume 96.3 Mean Corpuscular Hemoglobin 32.8 Mean Corpuscular Hemoglobin Concent 34.1 Red Cell Distribution Width 13.0 Platelet Count 194 Mean Platelet Volume 10.7 H Neutrophils % 66.6 Lymphocytes % 23.2 Monocytes % 6.7 Eosinophils % 2.7 Basophils % 0.4 Nucleated Red Blood Cells % 0.0 Neutrophils # 6.2 Lymphocytes # 2.2 Monocytes # 0.6 Eosinophils # 0.3 Basophils # 0.0 Nucleated Red Blood Cells # 0.0 Sodium Level 141 Potassium Level 4.0 Chloride Level 102 Carbon Dioxide Level 30 Anion Gap 13 Blood Urea Nitrogen 15 Creatinine 1.15 Glucose Level 90 Calcium Level 8.9 Phosphorus Level 4.0 Magnesium Level 2.0 Medications Medications Current Medications Ondansetron HCl (Zofran Inj) 4 mg Q6H PRN IV NAUSEA AND/OR VOMITING; Start at 18:30 Aspirin (Aspirin) 81 mg DAILY PO Last administered on 01/22/17 08:23; Admin Dose 81 MG; Start 01/19/17 at 09:00 Clopidogrel Bisulfate (plaVIX) 75 mg DAILY PO Last administered on 01/22/17 08:23; Admin Dose 75 MG; Start 01/18/17 at 18:30 Nitroglycerin (Nitroglycerin (Sl Tab) 0.4 Mg) 1 tab Q5M PRN SL CHEST PAIN; Start 01/18/17 at 18:30 Acetaminophen (Tylenol Tab) 650 mg Q6H PRN PO PAIN LEVEL 1-3 OR FEVER; Start 01/18/17 at 18:30 Acetaminophen/ Hydrocodone Bitart ([place] (5/325)) 1 tab Q6H PRN PO PAIN LEVEL 4 -6; Start 01/18/17 at 18:30 Morphine Sulfate (morphine) 2 mg Q4H PRN IV PAIN LEVEL 7-10 Last administered on 01/19/17 12:27; Admin Dose 2 MG; Start 01/18/17 at 18:30 Docusate Sodium (Colace) 100 mg Q12H PRN PO CONSTIPATION; Start 01/18/17 at 18 :30 Bisacodyl (Dulcolax) 5 mg DAILY PRN PO CONSTIPATION; Start 01/18/17 at 18:30 Pantoprazole (Protonix Tab) 40 mg DAILY@06 PO Last administered on 01/22/17 06:01; Admin Dose 40 MG; Start 01/19/17 at 06:00 Enoxaparin Sodium (Lovenox) 40 mg DAILY SC Last administered on 01/22/17 08: 26; Admin Dose 40 MG; Start 01/19/17 at 09:00 Atorvastatin Calcium (Lipitor) 80 mg HS PO Last administered on 01/21/17 22: 10; Admin Dose 80 MG; Start 01/18/17 at 21:00 Escitalopram Oxalate (Lexapro) 20 mg DAILY PO Last administered on 01/22/17 08:23; Admin Dose 20 MG; Start 01/19/17 at 09:00 Gabapentin (Neurontin) 300 mg TID PO Last administered on 01/22/17 08:23; Admin Dose 300 MG; Start 01/18/17 at 21:00 Lorazepam (Ativan) 0.5 mg Q8H PRN IV anxiety; Start 01/19/17 at 12:00 Lisinopril (Zestril) 2.5 mg DAILY PO Last administered on 01/22/17 08:23; Admin Dose 2.5 MG; Start 01/20/17 at 09:00 Isosorbide Dinitrate (Isordil) 10 mg TID PO Last administered on 01/22/17 08: 24; Admin Dose 10 MG; Start 01/19/17 at 21:00 Carvedilol (Coreg) 3.125 mg BID PO Last administered on 01/20/17 21:25; Admin Dose 3.125 MG; Start 01/19/17 at 21:00 Sucralfate (Carafate Susp) 1 gm QID PO Last administered on 01/21/17t 22:12; Admin Dose 1 GM; Start 01/21/17 at 17:00 Ranolazine (Ranexa) 500 mg Q12 PO ; Start 01/22/17 at 21:00 REDDY GOMES Jan 22, 2017 12:53
[2017-01-22] MEDS: ATORVASTATIN 80 MG TAB PO SCH (22:00)
[2017-01-22] MEDS: RANOLAZINE (SR) 500 MG TAB PO SCH (22:01)
[2017-01-23] VITALS (13 sets, daily range): BP systolic 85–126; BP diastolic 50–78; PULSE 51–94; RESP 17–19
[2017-01-23] MEDS: PANTOPRAZOLE (EC) 40 MG TAB PO SCH (05:29)
[2017-01-23 07:33] LABS: BASOPHILS % 0.5 % (0.0-2.0); EOSINOPHILS # 0.2 10^3/ul (0.0-0.5); EOSINOPHILS % 2.7 % (0.0-7.0); HEMATOCRIT 44.4 % (42.0-52.0); HEMOGLOBIN 15.2 g/dl (14.0-18.0); LYMPHOCYTES % 27.1 % (15.0-51.0); MEAN CORPUSCULAR HGB CONC 34.2 g/dl (32.0-37.0); MEAN CORPUSCULAR VOLUME 96.3 fl (82.0-101.0); MEAN PLATELET VOLUME 10.9 fl (7.4-10.4); MONOCYTE # 0.5 10^3/ul (0.3-0.9); NEUTROPHIL # 4.7 10^3/ul (1.6-7.5); NEUTROPHILS % 63.4 % (39.0-77.0); PLATELET COUNT 191 10^3/UL (140-415); RED BLOOD COUNT 4.61 10^6/ul (4.70-6.10); WHITE BLOOD COUNT 7.5 10^3/ul (4.8-10.8)
[2017-01-23 07:57] LABS: CREATININE 1.12 mg/dl (0.61-1.24); MAGNESIUM 1.9 mg/dl (1.7-2.5); PHOSPHORUS 3.8 mg/dl (2.5-4.9); POTASSIUM 3.9 mmol/L (3.5-5.1)
[2017-01-23] MEDS: ALBUTEROL/IPRATROPIUM (NEB) 3 ML AMP HHN SCH ×3 (08:00→19:57)
[2017-01-23] MEDS: SUCRALFATE (100 MG/ML) 10ML CUP PO SCH ×4 (08:24→20:36)
[2017-01-23] MEDS: RANOLAZINE (SR) 500 MG TAB PO SCH ×2 (08:38→20:43)
[2017-01-23] MEDS: ASPIRIN 81 MG TAB PO SCH (08:38)
[2017-01-23] MEDS: ISOSORBIDE DINITRATE 10 MG TAB PO SCH ×3 (08:39→20:47)
[2017-01-23] MEDS: GABAPENTIN 300 MG CAP PO SCH ×3 (08:39→20:43)
[2017-01-23] MEDS: ESCITALOPRAM 10 MG TAB PO SCH (08:39)
[2017-01-23] MEDS: CLOPIDOGREL 75 MG TAB PO SCH (08:39)
[2017-01-23] MEDS: LISINOPRIL 5 MG TAB PO SCH (08:39)
[2017-01-23] MEDS: ENOXAPARIN 40 MG/0.4 ML SYG SC SCH (08:42)
--- NOTE | 2017-01-23 10:08 | CONS ---
Date/Time of Note Date/Time of Note DATE: 01/23/17 TIME: 10:03 Assessment/Plan Assessment/Plan Additional Assessment/Plan 1. Chest pain, assess for acute coronary syndrome- no CP now, will med Rx for now. R/IO ME - no intervention planned now. Still with chest pain - will add Renexa now. NO clear responce - no evidence of ischemai - will work on dispo. 2. Abnormal electrocardiogram with anteroseptal Q's and deep T-wave inversions anteriorly- in good fluid status. DOUBT AMI. 3. Status post recent left heart catheterization with percutaneous transluminal coronary angioplasty and stent placement at [facility].Dr. Brar aware. Med therapy advised. 4. Status post recent myocardial infarction for which he received percutaneous transluminal coronary angioplasty and stent placement at [facility] in the last month. 5. Hypertension- well rx now. In good BP range now. BETTER now. 6. Bradycardia- sinus, no indication for pacing. No indication for pacing. 7. Premature ventricular contractions. Consultation Date/Type/Reason Admit Date/Time Jan 18, 2017 at 17:46 24 HR Interval Summary Free Text/Dictation NO acute events - BP in good range - no CP now - will monitor. ROS: No fever, no chills, no nausea, no vomiting, no diarrhea/constipation No recent weight changes + chest pain, no PND, no orthopnea No dizziness, blurred vision No thirst, no heat or cold intolerance Exam/Review of Systems Vital Signs Vitals Vital Signs Date Time Temp Pulse Resp B/P Pulse Ox O2 Delivery O2 Flow Rate FiO2 01/23/17 08:29 97.6 62 17 101/52 94 01/23/17 00:10 Room Air 01/22/17 20:36 21 01/20/17 13:42 1.0 Intake and Output 01/22/17 01/22/17 01/23/17 14:59 22:59 06:59 Intake Total 840 ml 600 ml Output Total 1250 ml Balance -410 ml 600 ml Exam General: WN/WD/NAD, AOx 3 HEENT: Unicetric/atraumatic/EOMI ( follows commands) NECK: JVD elevated, no thyromegaly Lymph: no lymphadenopathy HEART: regular with no S3, II/ systolic murmur at apex LUNGS: Coarse sounds ABD: soft, NT, ND, +BS : Intact Neuro: non focal SKIN: chronic changes EXT: trace edema Results Result Diagram: 01/23/17 0653 01/23/17 0653 Results 24 hrs Laboratory Tests Test 01/23/17 06:53 White Blood Count 7.5 Red Blood Count 4.61 L Hemoglobin 15.2 Hematocrit 44.4 Mean Corpuscular Volume 96.3 Mean Corpuscular Hemoglobin 33.0 Mean Corpuscular Hemoglobin Concent 34.2 Red Cell Distribution Width 13.0 Platelet Count 191 Mean Platelet Volume 10.9 H Neutrophils % 63.4 Lymphocytes % 27.1 Monocytes % 6.0 Eosinophils % 2.7 Basophils % 0.5 Nucleated Red Blood Cells % 0.0 Neutrophils # 4.7 Lymphocytes # 2.0 Monocytes # 0.5 Eosinophils # 0.2 Basophils # 0.0 Nucleated Red Blood Cells # 0.0 Sodium Level 141 Potassium Level 3.9 Chloride Level 102 Carbon Dioxide Level 31 Anion Gap 12 Blood Urea Nitrogen 16 Creatinine 1.12 Glucose Level 101 Calcium Level 9.0 Phosphorus Level 3.8 Magnesium Level 1.9 Medications Medications Current Medications Ondansetron HCl (Zofran Inj) 4 mg Q6H PRN IV NAUSEA AND/OR VOMITING; Start at 18:30 Aspirin (Aspirin) 81 mg DAILY PO Last administered on 01/23/17 08:38; Admin Dose 81 MG; Start 01/19/17 at 09:00 Clopidogrel Bisulfate (plaVIX) 75 mg DAILY PO Last administered on 01/23/17 08:39; Admin Dose 75 MG; Start 01/18/17 at 18:30 Nitroglycerin (Nitroglycerin (Sl Tab) 0.4 Mg) 1 tab Q5M PRN SL CHEST PAIN; Start 01/18/17 at 18:30 Acetaminophen (Tylenol Tab) 650 mg Q6H PRN PO PAIN LEVEL 1-3 OR FEVER; Start 01/18/17 at 18:30 Acetaminophen/ Hydrocodone Bitart ([place] (5/325)) 1 tab Q6H PRN PO PAIN LEVEL 4 -6; Start 01/18/17 at 18:30 Morphine Sulfate (morphine) 2 mg Q4H PRN IV PAIN LEVEL 7-10 Last administered on 01/19/17 12:27; Admin Dose 2 MG; Start 01/18/17 at 18:30 Docusate Sodium (Colace) 100 mg Q12H PRN PO CONSTIPATION; Start 01/18/17 at 18 :30 Bisacodyl (Dulcolax) 5 mg DAILY PRN PO CONSTIPATION; Start 01/18/17 at 18:30 Pantoprazole (Protonix Tab) 40 mg DAILY@06 PO Last administered on 01/23/17 05:29; Admin Dose 40 MG; Start 01/19/17 at 06:00 Enoxaparin Sodium (Lovenox) 40 mg DAILY SC Last administered on 01/23/17 08: 42; Admin Dose 40 MG; Start 01/19/17 at 09:00 Atorvastatin Calcium (Lipitor) 80 mg HS PO Last administered on 01/22/17 22: 00; Admin Dose 80 MG; Start 01/18/17 at 21:00 Escitalopram Oxalate (Lexapro) 20 mg DAILY PO Last administered on 01/23/17 08:39; Admin Dose 20 MG; Start 01/19/17 at 09:00 Gabapentin (Neurontin) 300 mg TID PO Last administered on 01/23/17 08:39; Admin Dose 300 MG; Start 01/18/17 at 21:00 Lorazepam (Ativan) 0.5 mg Q8H PRN IV anxiety; Start 01/19/17 at 12:00 Lisinopril (Zestril) 2.5 mg DAILY PO Last administered on 01/23/17 08:39; Admin Dose 2.5 MG; Start 01/20/17 at 09:00 Isosorbide Dinitrate (Isordil) 10 mg TID PO Last administered on 01/22/17 22: 01; Admin Dose 10 MG; Start 01/19/17 at 21:00 Carvedilol (Coreg) 3.125 mg BID PO Last administered on 01/23/17 08:40; Admin Dose 3.125 MG; Start 01/19/17 at 21:00 Sucralfate (Carafate Susp) 1 gm QID PO Last administered on 01/21/17 22:12; Admin Dose 1 GM; Start 01/21/17 at 17:00 Ranolazine (Ranexa) 500 mg Q12 PO Last administered on 01/23/17 08:38; Admin Dose 500 MG; Start 11/25/17 at 21:00 SCOTT HARMON MD Jan 23, 2017 10:08
--- NOTE | 2017-01-23 12:45 | PN ---
Date/Time of Note Date/Time of Note DATE: 01/23/17 TIME: 12:42 Assessment/Plan VTE Prophylaxis VTE Prophylaxis Intervention: SCD's Lines/Catheters IV Catheter Type (from Nrsg): Saline Lock Urinary Cath still in place: No Assessment/Plan Chief Complaint/Hosp Course s: 11.22: patient dose not have chest pain, but does have new onset right lower quadrant abdominal pain, which he thinks is from sleeping on his side 11.23: abdominal pain is much better, but still present with touch 11.24 much improved abdominal pain, mild nausea still present 11.25 still has occasional chest pressure 11.26 multiple complaints, 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 L sided inguinal hernia non tender Neurological: Moves all extremities spontaneously Skin: No new skin lesions Patient is a 56-year-old [facility] male who presents for persistent chest pain status post cardiac cath last month at [facility] Assessment and plan Chest pain -Patient's persistent chest pain is unlikely ACS, however will rule out, troponins trending, currently negative, cardiology consulted -Restart home cardiac meds as appropriate -Echo per cardiology -started on nitrate per cardiology, added ranexa, patient not clearly stating if it is helping or not. -HTN medication adjustment per cardiology -Monitor closely on telemetry bradycardia -asymptomatic, but monitor -cardiology recs abdominal pain -unsure, musculoskeletal vs visceral -CT abdomen/pelvis does not show any discrete findings, ? kidney issues -US kidney shows indeterminate findings, -patient allergic to contrast apparently, patient wishes to follow up with outpatient MRI instead of getting it done here Dyslipidemia -Atorvastatin Shortness of breath -Related to chest pain, breathing treatments as necessary Nausea and vomiting -Resolved Mood disorder, depression -Continue Lexapro -HPI from patient's primary care office states Depakote use, however not on medication list, and negative depakote level, will hold for now. GERD/hiatal hernia -Continue pantoprazole Hypertension -Continue medications DISPO: -pending cardiology recs, suggests to keep patient in house in order to fully evaluate efficacy of ranexa/nitrates, also will need to make arrangements so that patient can have outpatient appt with Dr. Brar, who will return tomorrow. Problems: Exam/Review of Systems Vital Signs Vitals Vital Signs Date Time Temp Pulse Resp B/P Pulse Ox O2 Delivery O2 Flow Rate FiO2 01/23/17 12:30 60 01/23/17 11:48 98.9 17 118/69 96 01/23/17 00:10 Room Air 01/22/17 20:36 21 01/20/17 13:42 1.0 Intake and Output 01/22/17 01/22/17 01/23/17 14:59 22:59 06:59 Intake Total 840 ml 600 ml Output Total 1250 ml Balance -410 ml 600 ml Results Result Diagram: 01/23/17 0653 01/23/17 0653 Results 24 hrs Laboratory Tests Test 01/23/17 06:53 White Blood Count 7.5 Red Blood Count 4.61 L Hemoglobin 15.2 Hematocrit 44.4 Mean Corpuscular Volume 96.3 Mean Corpuscular Hemoglobin 33.0 Mean Corpuscular Hemoglobin Concent 34.2 Red Cell Distribution Width 13.0 Platelet Count 191 Mean Platelet Volume 10.9 H Neutrophils % 63.4 Lymphocytes % 27.1 Monocytes % 6.0 Eosinophils % 2.7 Basophils % 0.5 Nucleated Red Blood Cells % 0.0 Neutrophils # 4.7 Lymphocytes # 2.0 Monocytes # 0.5 Eosinophils # 0.2 Basophils # 0.0 Nucleated Red Blood Cells # 0.0 Sodium Level 141 Potassium Level 3.9 Chloride Level 102 Carbon Dioxide Level 31 Anion Gap 12 Blood Urea Nitrogen 16 Creatinine 1.12 Glucose Level 101 Calcium Level 9.0 Phosphorus Level 3.8 Magnesium Level 1.9 Medications Medications Current Medications Ondansetron HCl (Zofran Inj) 4 mg Q6H PRN IV NAUSEA AND/OR VOMITING; Start at 18:30 Aspirin (Aspirin) 81 mg DAILY PO Last administered on 01/23/17 08:38; Admin Dose 81 MG; Start 01/19/17 at 09:00 Clopidogrel Bisulfate (plaVIX) 75 mg DAILY PO Last administered on 01/23/17 08:39; Admin Dose 75 MG; Start 01/18/17 at 18:30 Nitroglycerin (Nitroglycerin (Sl Tab) 0.4 Mg) 1 tab Q5M PRN SL CHEST PAIN; Start 01/18/17 at 18:30 Acetaminophen (Tylenol Tab) 650 mg Q6H PRN PO PAIN LEVEL 1-3 OR FEVER; Start 01/18/17 at 18:30 Acetaminophen/ Hydrocodone Bitart ([place] (5/325)) 1 tab Q6H PRN PO PAIN LEVEL 4 -6; Start 01/18/17 at 18:30 Morphine Sulfate (morphine) 2 mg Q4H PRN IV PAIN LEVEL 7-10 Last administered on 01/19/17 12:27; Admin Dose 2 MG; Start 01/18/17 at 18:30 Docusate Sodium (Colace) 100 mg Q12H PRN PO CONSTIPATION; Start 01/18/17 at 18 :30 Bisacodyl (Dulcolax) 5 mg DAILY PRN PO CONSTIPATION; Start 01/18/17 at 18:30 Pantoprazole (Protonix Tab) 40 mg DAILY@06 PO Last administered on 01/23/17 05:29; Admin Dose 40 MG; Start 01/19/17 at 06:00 Enoxaparin Sodium (Lovenox) 40 mg DAILY SC Last administered on 01/23/17 08: 42; Admin Dose 40 MG; Start 01/19/17 at 09:00 Atorvastatin Calcium (Lipitor) 80 mg HS PO Last administered on 01/22/17 22: 00; Admin Dose 80 MG; Start 01/18/17 at 21:00 Escitalopram Oxalate (Lexapro) 20 mg DAILY PO Last administered on 01/23/17 08:39; Admin Dose 20 MG; Start 01/19/17 at 09:00 Gabapentin (Neurontin) 300 mg TID PO Last administered on 01/23/17 08:39; Admin Dose 300 MG; Start 01/18/17 at 21:00 Lorazepam (Ativan) 0.5 mg Q8H PRN IV anxiety; Start 01/19/17 at 12:00 Lisinopril (Zestril) 2.5 mg DAILY PO Last administered on 01/23/17 08:39; Admin Dose 2.5 MG; Start 01/20/17 at 09:00 Isosorbide Dinitrate (Isordil) 10 mg TID PO Last administered on 01/22/17 22: 01; Admin Dose 10 MG; Start 01/19/17 at 21:00 Carvedilol (Coreg) 3.125 mg BID PO Last administered on 01/23/17 08:40; Admin Dose 3.125 MG; Start 01/19/17 at 21:00 Sucralfate (Carafate Susp) 1 gm QID PO Last administered on 01/21/17 22:12; Admin Dose 1 GM; Start 01/21/17 at 17:00 Ranolazine (Ranexa) 500 mg Q12 PO Last administered on 01/23/17 08:38; Admin Dose 500 MG; Start 01/22/17 at 21:00 REDDY GOMES Jan 23, 2017 12:45
[2017-01-23] MEDS: ATORVASTATIN 80 MG TAB PO SCH (20:43)
[2017-01-24] VITALS (11 sets, daily range): BP systolic 103–121; BP diastolic 60–70; PULSE 55–63; RESP 16–20
[2017-01-24] MEDS: PANTOPRAZOLE (EC) 40 MG TAB PO SCH (06:00)
[2017-01-24] MEDS: ALBUTEROL/IPRATROPIUM (NEB) 3 ML AMP HHN SCH ×3 (08:07→20:13)
[2017-01-24] MEDS: RANOLAZINE (SR) 500 MG TAB PO SCH ×2 (08:19→21:03)
[2017-01-24] MEDS: ESCITALOPRAM 10 MG TAB PO SCH (08:21)
[2017-01-24] MEDS: ISOSORBIDE DINITRATE 10 MG TAB PO SCH ×3 (08:21→21:03)
[2017-01-24] MEDS: ASPIRIN 81 MG TAB PO SCH (08:21)
[2017-01-24] MEDS: LISINOPRIL 5 MG TAB PO SCH (08:21)
[2017-01-24] MEDS: CLOPIDOGREL 75 MG TAB PO SCH (08:21)
[2017-01-24] MEDS: GABAPENTIN 300 MG CAP PO SCH ×3 (08:21→21:04)
[2017-01-24] MEDS: ENOXAPARIN 40 MG/0.4 ML SYG SC SCH (08:23)
[2017-01-24] MEDS: SUCRALFATE (100 MG/ML) 10ML CUP PO SCH ×4 (08:29→21:00)
[2017-01-24 08:47] LABS: BASOPHILS % 0.6 % (0.0-2.0); EOSINOPHILS # 0.2 10^3/ul (0.0-0.5); EOSINOPHILS % 3.2 % (0.0-7.0); HEMATOCRIT 45.8 % (42.0-52.0); HEMOGLOBIN 15.5 g/dl (14.0-18.0); LYMPHOCYTES # 2.3 10^3/ul (0.8-2.9); LYMPHOCYTES % 35.3 % (15.0-51.0); MEAN CORPUSCULAR HEMOGLOBIN 32.4 pg (29.0-33.0); MEAN CORPUSCULAR HGB CONC 33.8 g/dl (32.0-37.0); MEAN CORPUSCULAR VOLUME 95.6 fl (82.0-101.0); MEAN PLATELET VOLUME 10.9 fl (7.4-10.4); MONOCYTE # 0.4 10^3/ul (0.3-0.9); MONOCYTES % 6.6 % (0.0-11.0); NEUTROPHIL # 3.6 10^3/ul (1.6-7.5); PLATELET COUNT 199 10^3/UL (140-415); RED BLOOD COUNT 4.79 10^6/ul (4.70-6.10); RED CELL DISTRIBUTION WIDTH 12.5 % (11.5-14.5); WHITE BLOOD COUNT 6.6 10^3/ul (4.8-10.8)
[2017-01-24 09:23] LABS: CALCIUM 8.6 mg/dl (8.4-10.2); CREATININE 1.08 mg/dl (0.61-1.24); MAGNESIUM 1.9 mg/dl (1.7-2.5); PHOSPHORUS 4.2 mg/dl (2.5-4.9); POTASSIUM 3.4 mmol/L (3.5-5.1)
--- NOTE | 2017-01-24 09:57 | PN ---
Date/Time of Note Date/Time of Note DATE: 01/24/17 TIME: 09:57 Assessment/Plan VTE Prophylaxis VTE Prophylaxis Intervention: SCD's Lines/Catheters IV Catheter Type (from Nrs): Saline Lock Urinary Cath still in place: No Assessment/Plan Assessment/Plan 1. Chest pain r/o ACS - Patient experiencing palpitations and epigastric discomfort - Cardiology on board and recommendations appreciated. Trops currently negative and ECHO showed Ejection fraction 40-45 %. Abnormal Diastolic Function. These segments of the LV are hypokinetic apex. - Restart home cardiac meds as appropriate - started on nitrate per cardiology, added ranexa, patient not clearly stating if it is helping or not. - HTN medication adjustment per cardiology -Monitor closely on telemetry 2. bradycardia -asymptomatic, but monitor 3. abdominal pain - unsure, musculoskeletal vs visceral - CT abdomen/pelvis does not show any discrete findings, small hiatal hernia - US kidney shows indeterminate findings, - patient allergic to contrast apparently, patient wishes to follow up with outpatient MRI instead of getting it done here 4. Dyslipidemia - continue on Atorvastatin 5. Nausea and vomiting - Resolved 6. Mood disorder, depression - Continue Lexapro 7. GERD/hiatal hernia - Continue pantoprazole 8. Hypertension -Continue medications 9. Disposition - Awaiting further cardiology recommendations regarding palpitations/chest discomfort - will need outpatient cardiology follow up Subjective 24 Hr Interval Summary Free Text/Dictation Patient still experiencing chest palpitations and concerned about heart. No acute overnight events. Exam/Review of Systems Vital Signs Vitals Vital Signs Date Time Temp Pulse Resp B/P Pulse Ox O2 Delivery O2 Flow Rate FiO2 01/24/17 08:38 63 01/24/17 08:11 95 21 01/24/17 08:10 16 01/24/17 07:46 98.2 120/70 01/23/17 00:10 Room Air 01/20/17 13:42 1.0 Intake and Output 01/23/17 01/23/17 01/24/17 15:00 23:00 07:00 Intake Total 1000 ml Balance 1000 ml Exam General: Patient is laying in bed and answers questions appropriately Mentation: Patient is alert and oriented 4, Head: Normocephalic atraumatic Eyes: EOMI, pupils reactive to light Neck: Supple, nontender, midline Respiratory: Clear to auscultation bilaterally Cardiovascular: regular rate and rhythm, no obvious murmurs. no tenderness to palpation of chest wall Gastrointestinal: L sided inguinal hernia non tender Neurological: Moves all extremities spontaneously Skin: No new skin lesions Results Result Diagram: 01/24/1746 01/24/17 0746 Results 24 hrs Laboratory Tests Test 01/24/17 07:46 White Blood Count 6.6 Red Blood Count 4.79 Hemoglobin 15.5 Hematocrit 45.8 Mean Corpuscular Volume 95.6 Mean Corpuscular Hemoglobin 32.4 Mean Corpuscular Hemoglobin Concent 33.8 Red Cell Distribution Width 12.5 Platelet Count 199 Mean Platelet Volume 10.9 H Neutrophils % 54.0 Lymphocytes % 35.3 Monocytes % 6.6 Eosinophils % 3.2 Basophils % 0.6 Nucleated Red Blood Cells % 0.0 Neutrophils # 3.6 Lymphocytes # 2.3 Monocytes # 0.4 Eosinophils # 0.2 Basophils # 0.0 Nucleated Red Blood Cells # 0.0 Sodium Level 139 Potassium Level 3.4 L Chloride Level 101 Carbon Dioxide Level 26 Anion Gap 15 Blood Urea Nitrogen 14 Creatinine 1.08 Glucose Level 87 Calcium Level 8.6 Phosphorus Level 4.2 Magnesium Level 1.9 Medications Medications Current Medications Ondansetron HCl (Zofran Inj) 4 mg Q6H PRN IV NAUSEA AND/OR VOMITING; Start at 18:30 Aspirin (Aspirin) 81 mg DAILY PO Last administered on 01/24/17 08:21; Admin Dose 81 MG; Start 01/19/17 at 09:00 Clopidogrel Bisulfate (plaVIX) 75 mg DAILY PO Last administered on 01/24/17 08:21; Admin Dose 75 MG; Start 01/18/17 at 18:30 Nitroglycerin (Nitroglycerin (Sl Tab) 0.4 Mg) 1 tab Q5M PRN SL CHEST PAIN; Start 01/18/17 at 18:30 Acetaminophen (Tylenol Tab) 650 mg Q6H PRN PO PAIN LEVEL 1-3 OR FEVER; Start 01/18/17 at 18:30 Acetaminophen/ Hydrocodone Bitart ([place] (5/325)) 1 tab Q6H PRN PO PAIN LEVEL 4 -6; Start 01/18/17 at 18:30 Morphine Sulfate (morphine) 2 mg Q4H PRN IV PAIN LEVEL 7-10 Last administered on 01/19/17 12:27; Admin Dose 2 MG; Start 01/18/17 at 18:30 Docusate Sodium (Colace) 100 mg Q12H PRN PO CONSTIPATION; Start 01/18/17 at 18 :30 Bisacodyl (Dulcolax) 5 mg DAILY PRN PO CONSTIPATION; Start 01/18/17 at 18:30 Pantoprazole (Protonix Tab) 40 mg DAILY@06 PO Last administered on 01/23/17 05:29; Admin Dose 40 MG; Start 01/19/17 at 06:00 Enoxaparin Sodium (Lovenox) 40 mg DAILY SC Last administered on 01/24/17 08: 23; Admin Dose 40 MG; Start 01/19/17 at 09:00 Atorvastatin Calcium (Lipitor) 80 mg HS PO Last administered on 01/23/17 20: 43; Admin Dose 80 MG; Start 01/18/17 at 21:00 Escitalopram Oxalate (Lexapro) 20 mg DAILY PO Last administered on 01/24/17 08:21; Admin Dose 20 MG; Start 01/19/17 at 09:00 Gabapentin (Neurontin) 300 mg TID PO Last administered on 01/24/17 08:21; Admin Dose 300 MG; Start 01/18/17 at 21:00 Lorazepam (Ativan) 0.5 mg Q8H PRN IV anxiety; Start 01/19/17 at 12:00 Lisinopril (Zestril) 2.5 mg DAILY PO Last administered on 01/24/17 08:21; Admin Dose 2.5 MG; Start 01/20/17 at 09:00 Isosorbide Dinitrate (Isordil) 10 mg TID PO Last administered on 01/24/17 08: 21; Admin Dose 10 MG; Start 01/19/17 at 21:00 Carvedilol (Coreg) 3.125 mg BID PO Last administered on 01/23/17 08:40; Admin Dose 3.125 MG; Start 01/19/17 at 21:00 Sucralfate (Carafate Susp) 1 gm QID PO Last administered on 01/21/17 22:12; Admin Dose 1 GM; Start 01/21/17 at 17:00 Ranolazine (Ranexa) 500 mg Q12 PO Last administered on 01/24/17 08:19; Admin Dose 500 MG; Start 01/22/17 at 21:00 CAITLIN LEIVA MD Jan 24, 2017 09:57
[2017-01-24] MEDS ORDERED: POTASSIUM CHLORIDE (SR) 20 MEQ TAB PO STA (10:15)
--- NOTE | 2017-01-24 17:42 | CONS ---
Date/Time of Note Date/Time of Note DATE: 01/24/17 TIME: 17:35 Assessment/Plan Assessment/Plan Chief Complaint/Hosp Course IMPRESSION: 1. Chest pain, assess for acute coronary syndrome.-negative trop x 3. EF 40-45 % by echo 2. Abnormal electrocardiogram with anteroseptal Q's and deep T-wave inversions anteriorly. 3. Status post recent left heart catheterization with percutaneous transluminal coronary angioplasty and stent placement at [facility]. 4. Status post recent myocardial infarction for which he received percutaneous transluminal coronary angioplasty and stent placement at [facility] in the last month. 5. Hypertension. 6. Bradycardia-stable. 7. Premature ventricular contractions. Recc: -Tele -serial ecg's -Continue coreg/zestril -Contiue isordil as tolerated and thus started on ranexa as tolerated -Continue asa/plavix -No records from [facility] yet pertaining to ? recent cath and/or stress test -Lexiscan in stress test in am Problems: Consultation Date/Type/Reason Admit Date/Time Jan 18, 2017 at 17:46 Initial Consult Date 01/19/2017 Type of Consultation: cardiology Reason for Consultation chest pain Referring Provider: CALI MARQUIS MD Exam/Review of Systems Vital Signs Vitals Vital Signs Date Time Temp Pulse Resp B/P Pulse Ox O2 Delivery O2 Flow Rate FiO2 01/24/17 16:31 60 01/24/17 14:41 96 21 01/24/17 14:40 18 01/24/17 12:00 98.4 105/62 01/23/17 00:10 Room Air 01/20/17 13:42 1.0 Intake and Output 01/23/17 01/23/17 01/24/17 15:00 23:00 07:00 Intake Total 1000 ml Balance 1000 ml Exam Review of Systems: CONSTITUTIONAL: No fevers, chills. PULMONARY: No sob CARDIOVASCULAR: No chest pain/palpitations GASTROINTESTINAL: No nausea/vomiting. GENITOURINARY: No hematuria/dysuria. MUSCULOSKELETAL: No myagias/arthalgias. PSYCHIATRIC: The patient denies depression. NEUROLOGIC: No weakness Constitutional: alert, oriented Psych: no complaints Head: normocephalic ENMT: mucosa pink and moist Neck: jvd (8-9 cm water), supple Respiratory: clear to auscultation Cardiovascular: regular rate and rhythm Gastrointestinal: non-tender, soft Musculoskeletal: muscle tone (normal) Extremities: edema (none) Neurological: other (No focal deficits) Results Result Diagram: 01/24/1746 01/24/17 0746 Results 24 hrs Laboratory Tests Test 01/24/17 07:46 White Blood Count 6.6 Red Blood Count 4.79 Hemoglobin 15.5 Hematocrit 45.8 Mean Corpuscular Volume 95.6 Mean Corpuscular Hemoglobin 32.4 Mean Corpuscular Hemoglobin Concent 33.8 Red Cell Distribution Width 12.5 Platelet Count 199 Mean Platelet Volume 10.9 H Neutrophils % 54.0 Lymphocytes % 35.3 Monocytes % 6.6 Eosinophils % 3.2 Basophils % 0.6 Nucleated Red Blood Cells % 0.0 Neutrophils # 3.6 Lymphocytes # 2.3 Monocytes # 0.4 Eosinophils # 0.2 Basophils # 0.0 Nucleated Red Blood Cells # 0.0 Sodium Level 139 Potassium Level 3.4 L Chloride Level 101 Carbon Dioxide Level 26 Anion Gap 15 Blood Urea Nitrogen 14 Creatinine 1.08 Glucose Level 87 Calcium Level 8.6 Phosphorus Level 4.2 Magnesium Level 1.9 Medications Medications Current Medications Ondansetron HCl (Zofran Inj) 4 mg Q6H PRN IV NAUSEA AND/OR VOMITING; Start at 18:30 Aspirin (Aspirin) 81 mg DAILY PO Last administered on 01/24/17 08:21; Admin Dose 81 MG; Start 01/19/17 at 09:00 Clopidogrel Bisulfate (plaVIX) 75 mg DAILY PO Last administered on 01/24/17 08:21; Admin Dose 75 MG; Start 01/18/17 at 18:30 Nitroglycerin (Nitroglycerin (Sl Tab) 0.4 Mg) 1 tab Q5M PRN SL CHEST PAIN; Start 01/18/17 at 18:30 Acetaminophen (Tylenol Tab) 650 mg Q6H PRN PO PAIN LEVEL 1-3 OR FEVER; Start 01/18/17 at 18:30 Acetaminophen/ Hydrocodone Bitart ([place] (5/325)) 1 tab Q6H PRN PO PAIN LEVEL 4 -6; Start 01/18/17 at 18:30 Morphine Sulfate (morphine) 2 mg Q4H PRN IV PAIN LEVEL 7-10 Last administered on 01/19/17 12:27; Admin Dose 2 MG; Start 01/18/17 at 18:30 Docusate Sodium (Colace) 100 mg Q12H PRN PO CONSTIPATION; Start 01/18/17 at 18 :30 Bisacodyl (Dulcolax) 5 mg DAILY PRN PO CONSTIPATION; Start 01/18/17 at 18:30 Pantoprazole (Protonix Tab) 40 mg DAILY@06 PO Last administered on 01/23/17 05:29; Admin Dose 40 MG; Start 01/19/17 at 06:00 Enoxaparin Sodium (Lovenox) 40 mg DAILY SC Last administered on 01/24/17 08: 23; Admin Dose 40 MG; Start 01/19/17 at 09:00 Atorvastatin Calcium (Lipitor) 80 mg HS PO Last administered on 01/23/17 20: 43; Admin Dose 80 MG; Start 01/18/17 at 21:00 Escitalopram Oxalate (Lexapro) 20 mg DAILY PO Last administered on 01/24/17 08:21; Admin Dose 20 MG; Start 01/19/17 at 09:00 Gabapentin (Neurontin) 300 mg TID PO Last administered on 01/24/17 12:51; Admin Dose 300 MG; Start 01/18/17 at 21:00 Lorazepam (Ativan) 0.5 mg Q8H PRN IV anxiety; Start 01/19/17 at 12:00 Lisinopril (Zestril) 2.5 mg DAILY PO Last administered on 01/24/17 08:21; Admin Dose 2.5 MG; Start 01/20/17 at 09:00 Isosorbide Dinitrate (Isordil) 10 mg TID PO Last administered on 01/24/17 08: 21; Admin Dose 10 MG; Start 01/19/17 at 21:00 Carvedilol (Coreg) 3.125 mg BID PO Last administered on 01/23/17 08:40; Admin Dose 3.125 MG; Start 01/19/17 at 21:00 Sucralfate (Carafate Susp) 1 gm QID PO Last administered on 01/21/17 22:12; Admin Dose 1 GM; Start 01/21/17 at 17:00 Ranolazine (Ranexa) 500 mg Q12 PO Last administered on 01/24/17 08:19; Admin Dose 500 MG; Start 01/22/17 at 21:00 NILAM DOVER Jan 24, 2017 17:42
[2017-01-24] MEDS: ATORVASTATIN 80 MG TAB PO SCH (21:04)
[2017-01-25] VITALS (13 sets, daily range): BP systolic 93–100; BP diastolic 50–67; PULSE 54–87; RESP 17–20
[2017-01-25] MEDS: PANTOPRAZOLE (EC) 40 MG TAB PO SCH (06:00)
[2017-01-25 07:24] LABS: ALBUMIN 3.6 g/dl (3.3-4.9); CALCIUM 8.8 mg/dl (8.4-10.2); CREATININE 1.3 mg/dl (0.61-1.24); MAGNESIUM 1.9 mg/dl (1.7-2.5); PHOSPHORUS 4.4 mg/dl (2.5-4.9); POTASSIUM 3.9 mmol/L (3.5-5.1)
[2017-01-25] MEDS: ALBUTEROL/IPRATROPIUM (NEB) 3 ML AMP HHN SCH ×3 (08:19→20:14)
[2017-01-25] MEDS: ESCITALOPRAM 10 MG TAB PO SCH (08:53)
[2017-01-25] MEDS: CLOPIDOGREL 75 MG TAB PO SCH (08:53)
[2017-01-25] MEDS: GABAPENTIN 300 MG CAP PO SCH ×3 (08:53→20:34)
[2017-01-25] MEDS: ASPIRIN 81 MG TAB PO SCH (08:53)
[2017-01-25] MEDS: SUCRALFATE (100 MG/ML) 10ML CUP PO SCH ×4 (08:53→20:33)
[2017-01-25] MEDS: RANOLAZINE (SR) 500 MG TAB PO SCH ×2 (08:53→20:34)
[2017-01-25] MEDS: ISOSORBIDE DINITRATE 10 MG TAB PO SCH ×3 (08:54→20:34)
[2017-01-25] MEDS: LISINOPRIL 5 MG TAB PO SCH (08:54)
[2017-01-25] MEDS: ENOXAPARIN 40 MG/0.4 ML SYG SC SCH (08:57)
[2017-01-25] MEDS ORDERED: REGADENOSON 0.4 MG/5 ML SYG ONE (10:43)
--- NOTE | 2017-01-25 10:52 | PN ---
Date/Time of Note Date/Time of Note DATE: 01/25/17 TIME: 10:52 Assessment/Plan VTE Prophylaxis VTE Prophylaxis Intervention: ambulation Lines/Catheters IV [facility]from [facility] Saline Lock Urinary Cath still in place: No Assessment/Plan Assessment/Plan 1. Chest pain- ACS ruled out - Patient still experiencing palpitations but appears to be more stress related after long discussion with social issues patient is dealing with - Cardiology on board and recommendations appreciated. Trops currently negative and ECHO showed Ejection fraction 40-45 %. Abnormal Diastolic Function. These segments of the LV are hypokinetic apex. Stress test this am negative for any acute ischemia - Started on Nitrate and Ranexa -Monitor closely on telemetry 2. Bradycardia -asymptomatic, but monitor 3. abdominal pain - CT abdomen/pelvis does not show any discrete findings, small hiatal hernia - US kidney shows indeterminate findings - patient allergic to contrast apparently, patient wishes to follow up with outpatient MRI instead of getting it done here 4. Dyslipidemia - continue on Atorvastatin 5. Nausea and vomiting - Resolved 6. Mood disorder, depression - Continue Lexapro 7. GERD/hiatal hernia - Continue pantoprazole 8. Hypertension -Continue medications 9. Disposition - Will need outpatient cardiac follow up Subjective 24 Hr Interval Summary Free Text/Dictation Patient still experiencing chest discomfort but denies any new symptoms or worsening of pain. No acute overnight events. Exam/Review of Systems Vital Signs Vitals Vital Signs Date Time Temp Pulse Resp B/P Pulse Ox O2 Delivery O2 Flow Rate FiO2 01/25/17 08:29 60 18 95 21 01/25/17 07:34 98.2 99/67 01/23/17 00:10 Room Air Intake and Output 01/24/17 01/24/17 01/25/17 15:00 23:00 07:00 Intake Total 800 ml 450 ml Output Total 600 ml Balance 800 ml -150 ml Exam General: Patient is laying in bed and answers questions appropriately Mentation: Patient is alert and oriented 4, Head: Normocephalic atraumatic Eyes: EOMI, pupils reactive to light Neck: Supple, nontender, midline Respiratory: Clear to auscultation bilaterally Cardiovascular: regular rate and rhythm, no obvious murmurs. no tenderness to palpation of chest wall Gastrointestinal: L sided inguinal hernia non tender Neurological: Moves all extremities spontaneously Skin: No new skin lesions Results Result Diagram: 01/24/17 0746 01/25/17 0636 Results 24 hrs Laboratory Tests Test 01/25/17 06:36 Sodium Level 141 Potassium Level 3.9 Chloride Level 100 Carbon Dioxide Level 30 Anion Gap 15 Blood Urea Nitrogen 13 Creatinine 1.30 H Glucose Level 92 Calcium Level 8.8 Phosphorus Level 4.4 Magnesium Level 1.9 Albumin 3.6 Medications Medications Current Medications Ondansetron HCl (Zofran Inj) 4 mg Q6H PRN IV NAUSEA AND/OR VOMITING; Start at 18:30 Aspirin (Aspirin) 81 mg DAILY PO Last administered on 01/25/17 08:53; Admin Dose 81 MG; Start 01/19/17 at 09:00 Clopidogrel Bisulfate (plaVIX) 75 mg DAILY PO Last administered on 01/25/17 08:53; Admin Dose 75 MG; Start 01/18/17 at 18:30 Nitroglycerin (Nitroglycerin (Sl Tab) 0.4 Mg) 1 tab Q5M PRN SL CHEST PAIN; Start 01/18/17 at 18:30 Acetaminophen (Tylenol Tab) 650 mg Q6H PRN PO PAIN LEVEL 1-3 OR FEVER; Start 01/18/17 at 18:30 Acetaminophen/ Hydrocodone Bitart ([place] (5/325)) 1 tab Q6H PRN PO PAIN LEVEL 4 -6; Start 01/18/17 at 18:30 Morphine Sulfate (morphine) 2 mg Q4H PRN IV PAIN LEVEL 7-10 Last administered on 01/19/17 12:27; Admin Dose 2 MG; Start 01/18/17 at 18:30 Docusate Sodium (Colace) 100 mg Q12H PRN PO CONSTIPATION; Start 01/18/17 at 18 :30 Bisacodyl (Dulcolax) 5 mg DAILY PRN PO CONSTIPATION; Start 01/18/17 at 18:30 Pantoprazole (Protonix Tab) 40 mg DAILY@06 PO Last administered on 01/23/17 05:29; Admin Dose 40 MG; Start 01/19/17 at 06:00 Enoxaparin Sodium (Lovenox) 40 mg DAILY SC Last administered on 01/25/17 08: 57; Admin Dose 40 MG; Start 01/19/17 at 09:00 Atorvastatin Calcium (Lipitor) 80 mg HS PO Last administered on 01/24/17 21: 04; Admin Dose 80 MG; Start 01/18/17 at 21:00 Escitalopram Oxalate (Lexapro) 20 mg DAILY PO Last administered on 01/25/17 08:53; Admin Dose 20 MG; Start 01/19/17 at 09:00 Gabapentin (Neurontin) 300 mg TID PO Last administered on 01/25/17 08:53; Admin Dose 300 MG; Start 01/18/17 at 21:00 Lorazepam (Ativan) 0.5 mg Q8H PRN IV anxiety; Start 01/19/17 at 12:00 Lisinopril (Zestril) 2.5 mg DAILY PO Last administered on 01/24/17 08:21; Admin Dose 2.5 MG; Start 01/20/17 at 09:00 Isosorbide Dinitrate (Isordil) 10 mg TID PO Last administered on 01/24/17 21: 03; Admin Dose 10 MG; Start 01/19/17 at 21:00 Carvedilol (Coreg) 3.125 mg BID PO Last administered on 01/23/17 08:40; Admin Dose 3.125 MG; Start 01/19/17 at 21:00 Sucralfate (Carafate Susp) 1 gm QID PO Last administered on 01/21/17 22:12; Admin Dose 1 GM; Start 01/21/17 at 17:00 Ranolazine (Ranexa) 500 mg Q12 PO Last administered on 01/25/17 08:53; Admin Dose 500 MG; Start 01/22/17 at 21:00 CAITLIN LEIVA MD Jan 25, 2017 10:52
--- NOTE | 2017-01-25 11:29 | CONS ---
Date/Time of Note Date/Time of Note DATE: 01/25/17 TIME: : Assessment/Plan Assessment/Plan Additional Assessment/Plan 1. Chest pain, assess for acute coronary syndrome- no CP now, will med Rx for now. R/IO GA - no intervention planned now. Still with chest pain - will add Renexa now. NO clear responce - no evidence of ischemai - will work on dispo. STRESS TEST COMPLETED, will FOLLOW. 2. Abnormal electrocardiogram with anteroseptal Q's and deep T-wave inversions anteriorly- in good fluid status. DOUBT AMI. 3. Status post recent left heart catheterization with percutaneous transluminal coronary angioplasty and stent placement at [facility].Dr. Brar aware. Med therapy advised. 4. Status post recent myocardial infarction for which he received percutaneous transluminal coronary angioplasty and stent placement at [facility] in the last month. 5. Hypertension- well rx now. In good BP range now. BETTER now. 6. Bradycardia- sinus, no indication for pacing. No indication for pacing. 7. Premature ventricular contractions. Consultation Date/Type/Reason Admit Date/Time Jan 18, 2017 at 17:46 Type of Consultation: cardiology Referring Provider: CALI MARQUIS MD 24 HR Interval Summary Free Text/Dictation STRESS TEST COMPLETED, will FOLLOW. ROS: No fever, no chills, no nausea, no vomiting, no diarrhea/constipation No recent weight changes No chest pain, no PND, no orthopnea + CP No dizziness, blurred vision No thirst, no heat or cold intolerance Exam/Review of Systems Vital Signs Vitals Vital Signs Date Time Temp Pulse Resp B/P Pulse Ox O2 Delivery O2 Flow Rate FiO2 01/25/17 08:29 60 18 95 21 01/25/17 07:34 98.2 99/67 01/23/17 00:10 Room Air Intake and Output 01/24/17 01/24/17 01/25/17 15:00 23:00 07:00 Intake Total 800 ml 450 ml Output Total 600 ml Balance 800 ml -150 ml Exam General: WN/WD/NAD, AOx 3 HEENT: Unicetric/atraumatic/EOMI (follow commands) NECK: JVD elevated, no thyromegaly Lymph: no lymphadenopathy HEART: regular with no S3, II/ systolic murmur at apex LUNGS: Coarse sounds ABD: soft, NT, ND, +BS : Intact Neuro: non focal SKIN: chronic changes EXT: trace edema Results Result Diagram: 01/24/17 0746 01/25/17 0636 Results 24 hrs Laboratory Tests Test 01/25/17 06:36 Sodium Level 141 Potassium Level 3.9 Chloride Level 100 Carbon Dioxide Level 30 Anion Gap 15 Blood Urea Nitrogen 13 Creatinine 1.30 H Glucose Level 92 Calcium Level 8.8 Phosphorus Level 4.4 Magnesium Level 1.9 Albumin 3.6 Medications Medications Current Medications Ondansetron HCl (Zofran Inj) 4 mg Q6H PRN IV NAUSEA AND/OR VOMITING; Start at 18:30 Aspirin (Aspirin) 81 mg DAILY PO Last administered on 01/25/17 08:53; Admin Dose 81 MG; Start 01/19/17 at 09:00 Clopidogrel Bisulfate (plaVIX) 75 mg DAILY PO Last administered on 01/25/17 08:53; Admin Dose 75 MG; Start 01/18/17 at 18:30 Nitroglycerin (Nitroglycerin (Sl Tab) 0.4 Mg) 1 tab Q5M PRN SL CHEST PAIN; Start 01/18/17 at 18:30 Acetaminophen (Tylenol Tab) 650 mg Q6H PRN PO PAIN LEVEL 1-3 OR FEVER; Start 01/18/17 at 18:30 Acetaminophen/ Hydrocodone Bitart ([place] (5/325)) 1 tab Q6H PRN PO PAIN LEVEL 4 -6; Start 01/18/17 at 18:30 Morphine Sulfate (morphine) 2 mg Q4H PRN IV PAIN LEVEL 7-10 Last administered on 01/19/17 12:27; Admin Dose 2 MG; Start 01/18/17 at 18:30 Docusate Sodium (Colace) 100 mg Q12H PRN PO CONSTIPATION; Start 01/18/17 at 18 :30 Bisacodyl (Dulcolax) 5 mg DAILY PRN PO CONSTIPATION; Start 01/18/17 at 18:30 Pantoprazole (Protonix Tab) 40 mg DAILY@06 PO Last administered on 01/23/17 05:29; Admin Dose 40 MG; Start 01/19/17 at 06:00 Enoxaparin Sodium (Lovenox) 40 mg DAILY SC Last administered on 01/25/17 08: 57; Admin Dose 40 MG; Start 01/19/17 at 09:00 Atorvastatin Calcium (Lipitor) 80 mg HS PO Last administered on 01/24/17 21: 04; Admin Dose 80 MG; Start 01/18/17 at 21:00 Escitalopram Oxalate (Lexapro) 20 mg DAILY PO Last administered on 01/25/17 08:53; Admin Dose 20 MG; Start 01/19/17 at 09:00 Gabapentin (Neurontin) 300 mg TID PO Last administered on 01/25/17 08:53; Admin Dose 300 MG; Start 01/18/17 at 21:00 Lorazepam (Ativan) 0.5 mg Q8H PRN IV anxiety; Start 01/19/17 at 12:00 Lisinopril (Zestril) 2.5 mg DAILY PO Last administered on 01/24/17 08:21; Admin Dose 2.5 MG; Start 01/20/17 at 09:00 Isosorbide Dinitrate (Isordil) 10 mg TID PO Last administered on 01/24/17 21: 03; Admin Dose 10 MG; Start 01/19/17 at 21:00 Carvedilol (Coreg) 3.125 mg BID PO Last administered on 01/23/17 08:40; Admin Dose 3.125 MG; Start 01/19/17 at 21:00 Sucralfate (Carafate Susp) 1 gm QID PO Last administered on 01/21/17 22:12; Admin Dose 1 GM; Start 01/21/17 at 17:00 Ranolazine (Ranexa) 500 mg Q12 PO Last administered on 01/25/17 08:53; Admin Dose 500 MG; Start 01/22/17 at 21:00 SCOTT HARMON MD Jan 25, 2017 11:29
--- NOTE | 2017-01-25 12:38 | ECORPT ---
DATE OF SERVICE: [facility] CARDIAC STRESS TEST REFERRING PHYSICIAN: Dr. Godron Gomes REASON FOR EVALUATION: History of coronary artery disease with chest pain. DESCRIPTION OF THE PROCEDURE: The patient was brought in the heart station. He had a successful Le xiscan injection. He tolerated the procedure well. There was no ischemia. Heart rate went up to 1 02, blood pressure /60. The imaging portion is dictated separately. Dictated By: SCOTT HARMON MD ML/NTS Conf#: [id number] DID#: [id number] CC: GORDON GOMES MD;*EndCC*
--- NOTE | 2017-01-25 12:48 | RADRPT ---
PROCEDURE: Lexiscan myocardial perfusion study CLINICAL INDICATION: 56 -year-old patient coronary artery disease, status post myocardial infarcti on, complaining of chest pain. TECHNIQUE: Lexiscan 0.4 mg intravenously separate acquisition gated myocardial perfusion SPECT usi ng Tc 99m Myoview 30.6 mCi intravenously at stress and Tc-99m Myoview, 9.6 mCi intravenously at rest was performed using the rest/stress sequence. Poststress Myoview SPECT images were obtained in the supine position. COMPARISON: No prior studies. FINDINGS: Perfusion images reveal a large size moderate to severe in degree nonreversible perfusion defect is seen in the apical, distal to mid anterior, distal to mid anteroseptal and distal inferior majano, mo st compatible with prior myocardial infarction. Lexiscan post stress gated SPECT images demonstrate mild hypokinesis of the apex, anterior and septa l majano. IMPRESSION: 1. The type and distribution of the scintigraphic abnormalities are most consistent with a large si ze nonreversible perfusion defect involving the apex, distal to mid anterior, distal to mid anterose ptal and distal inferior majano compatible with prior myocardial infarction. 2. Mild hypokinesis of the anterior, septal and apical majano. 3. The left ventricle ejection fraction at stress is 49%. A call report was made to Dr. Bernabe at twelfth 46 p.m. on January 25, 2017. RPTAT: HH .Tammy Rashid MD, Date Time Electronically viewed and signed by .Tammy Rashid MD, on 01/25/2017 12:48 .L/
[2017-01-25] MEDS: ATORVASTATIN 80 MG TAB PO SCH (20:34)
[2017-01-26] VITALS (12 sets, daily range): BP systolic 94–110; BP diastolic 54–68; PULSE 50–100; RESP 17–20
[2017-01-26] MEDS: PANTOPRAZOLE (EC) 40 MG TAB PO SCH (05:41)
[2017-01-26] MEDS: ALBUTEROL/IPRATROPIUM (NEB) 3 ML AMP HHN SCH ×3 (08:00→19:21)
[2017-01-26] MEDS: CLOPIDOGREL 75 MG TAB PO SCH (08:40)
[2017-01-26] MEDS: ASPIRIN 81 MG TAB PO SCH (08:40)
[2017-01-26] MEDS: RANOLAZINE (SR) 500 MG TAB PO SCH ×2 (08:40→20:20)
[2017-01-26] MEDS: ISOSORBIDE DINITRATE 10 MG TAB PO SCH ×3 (08:41→20:22)
[2017-01-26] MEDS: GABAPENTIN 300 MG CAP PO SCH ×3 (08:41→20:20)
[2017-01-26] MEDS: ESCITALOPRAM 10 MG TAB PO SCH (08:41)
[2017-01-26] MEDS: LISINOPRIL 5 MG TAB PO SCH (08:42)
[2017-01-26] MEDS: ENOXAPARIN 40 MG/0.4 ML SYG SC SCH (08:51)
[2017-01-26] MEDS: SUCRALFATE (100 MG/ML) 10ML CUP PO SCH ×4 (08:56→20:24)
[2017-01-26 09:23] LABS: ALBUMIN 3.4 g/dl (3.3-4.9); CALCIUM 8.9 mg/dl (8.4-10.2); CREATININE 1.1 mg/dl (0.61-1.24); POTASSIUM 3.8 mmol/L (3.5-5.1)
--- NOTE | 2017-01-26 13:54 | CONS ---
Date/Time of Note Date/Time of Note DATE: 01/26/17 TIME: 13:52 Assessment/Plan Assessment/Plan Chief Complaint/Hosp Course IMPRESSION: 1. Chest pain, assess for acute coronary syndrome.-negative trop x 3. EF 40-45 % by echo. Now s/p lexiscan with no ischemia, only scar,EF 49% 2. Abnormal electrocardiogram with anteroseptal Q's and deep T-wave inversions anteriorly. 3. Status post recent left heart catheterization with percutaneous transluminal coronary angioplasty and stent placement at [facility]. 4. Status post recent myocardial infarction for which he received percutaneous transluminal coronary angioplasty and stent placement at [facility] in the last month. 5. Hypertension. 6. Bradycardia-stable. 7. Premature ventricular contractions. Recc: -Tele -serial ecg's -Continue coreg/zestril as tolerated -Contiue ranexa -Continue asa/plavix -D/C planning from cardiac standpoint Problems: Consultation Date/Type/Reason Admit Date/Time Jan 18, 2017 at 17:46 Initial Consult Date 01/19/2017 Type of Consultation: cardiology Reason for Consultation chest pain Referring Provider: CALI MARQUIS MD Exam/Review of Systems Vital Signs Vitals Vital Signs Date Time Temp Pulse Resp B/P Pulse Ox O2 Delivery O2 Flow Rate FiO2 01/26/17 13:42 64 18 94 21 01/26/17 11:25 98.2 94/54 01/23/17 00:10 Room Air Intake and Output 01/25/17 01/25/17 01/26/17 14:59 22:59 06:59 Intake Total 500 ml 600 ml 600 ml Balance 500 ml 600 ml 600 ml Exam Review of Systems: CONSTITUTIONAL: No fevers, chills. PULMONARY: No sob CARDIOVASCULAR: No chest pain/palpitations GASTROINTESTINAL: No nausea/vomiting. GENITOURINARY: No hematuria/dysuria. MUSCULOSKELETAL: No myagias/arthalgias. PSYCHIATRIC: The patient denies depression. NEUROLOGIC: No weakness Constitutional: alert Psych: no complaints Head: normocephalic ENMT: mucosa pink and moist Neck: jvd (8 cm water), supple Respiratory: clear to auscultation Cardiovascular: regular rate and rhythm Gastrointestinal: non-tender, soft Musculoskeletal: muscle tone (normal) Extremities: edema (none) Neurological: other (No focal deficits) Results Result Diagram: 01/24/17 0746 01/26/17 0809 Results 24 hrs Laboratory Tests Test 01/26/17 08:09 Sodium Level 141 Potassium Level 3.8 Chloride Level 101 Carbon Dioxide Level 32 H Anion Gap 12 Blood Urea Nitrogen 16 Creatinine 1.10 Glucose Level 93 Calcium Level 8.9 Phosphorus Level 4.0 Magnesium Level 2.0 Albumin 3.4 Medications Medications Current Medications Ondansetron HCl (Zofran Inj) 4 mg Q6H PRN IV NAUSEA AND/OR VOMITING; Start at 18:30 Aspirin (Aspirin) 81 mg DAILY PO Last administered on 01/26/17 08:40; Admin Dose 81 MG; Start 01/19/17 at 09:00 Clopidogrel Bisulfate (plaVIX) 75 mg DAILY PO Last administered on 01/26/17 08:40; Admin Dose 75 MG; Start 01/18/17 at 18:30 Nitroglycerin (Nitroglycerin (Sl Tab) 0.4 Mg) 1 tab Q5M PRN SL CHEST PAIN; Start 01/18/17 at 18:30 Acetaminophen (Tylenol Tab) 650 mg Q6H PRN PO PAIN LEVEL 1-3 OR FEVER; Start 01/18/17 at 18:30 Acetaminophen/ Hydrocodone Bitart ([place] (5/325)) 1 tab Q6H PRN PO PAIN LEVEL 4 -6; Start 01/18/17 at 18:30 Morphine Sulfate (morphine) 2 mg Q4H PRN IV PAIN LEVEL 7-10 Last administered on 01/19/17 12:27; Admin Dose 2 MG; Start 01/18/17 at 18:30 Docusate Sodium (Colace) 100 mg Q12H PRN PO CONSTIPATION; Start 01/18/17 at 18 :30 Bisacodyl (Dulcolax) 5 mg DAILY PRN PO CONSTIPATION; Start 01/18/17 at 18:30 Pantoprazole (Protonix Tab) 40 mg DAILY@06 PO Last administered on 01/23/17 05:29; Admin Dose 40 MG; Start 01/19/17 at 06:00 Enoxaparin Sodium (Lovenox) 40 mg DAILY SC Last administered on 01/26/17 08: 51; Admin Dose 40 MG; Start 01/19/17 at 09:00 Atorvastatin Calcium (Lipitor) 80 mg HS PO Last administered on 01/25/17 20: 34; Admin Dose 80 MG; Start 01/18/17 at 21:00 Escitalopram Oxalate (Lexapro) 20 mg DAILY PO Last administered on 01/26/17 08:41; Admin Dose 20 MG; Start 01/19/17 at 09:00 Gabapentin (Neurontin) 300 mg TID PO Last administered on 01/26/17 13:02; Admin Dose 300 MG; Start 01/18/17 at 21:00 Lorazepam (Ativan) 0.5 mg Q8H PRN IV anxiety; Start 01/19/17 at 12:00 Lisinopril (Zestril) 2.5 mg DAILY PO Last administered on 01/26/17 08:42; Admin Dose 2.5 MG; Start 01/20/17 at 09:00 Isosorbide Dinitrate (Isordil) 10 mg TID PO Last administered on 01/26/17 08: 41; Admin Dose 10 MG; Start 01/19/17 at 21:00 Carvedilol (Coreg) 3.125 mg BID PO Last administered on 01/26/17 08:41; Admin Dose 3.125 MG; Start 01/19/17 at 21:00 Sucralfate (Carafate Susp) 1 gm QID PO Last administered on 01/21/17 22:12; Admin Dose 1 GM; Start 01/21/17 at 17:00 Ranolazine (Ranexa) 500 mg Q12 PO Last administered on 01/26/17 08:40; Admin Dose 500 MG; Start 01/22/17 at 21:00 NILAM DOVER 29, 2017 13:54
--- NOTE | 2017-01-26 18:12 | PN ---
Date/Time of Note Date/Time of Note DATE: 01/26/17 TIME: 18:08 Assessment/Plan VTE Prophylaxis VTE Prophylaxis Intervention: SCD's Lines/Catheters IV Catheter Type (from Nrs): Saline Lock Urinary Cath still in place: No Assessment/Plan Assessment/Plan 1. Chest pain- ACS ruled out - Most likely anxiety and stress related as patient still experiencing palpitations and sensation of throat closing. Will try on Remeron tonight and d /c in am - Cardiology on board and recommendations appreciated. Trops currently negative and ECHO showed Ejection fraction 40-45 %. Abnormal Diastolic Function. These segments of the LV are hypokinetic apex. Stress test this am negative for any acute ischemia - Started on Nitrate and Ranexa - CM contacted patient PCP to arrange for referral to [facility] upon discharge 2. Bradycardia - asymptomatic, but monitor 3. abdominal pain - CT abdomen/pelvis does not show any discrete findings, small hiatal hernia - US kidney shows indeterminate findings - patient allergic to contrast apparently, patient wishes to follow up with outpatient MRI instead of getting it done here 4. Dyslipidemia - continue on Atorvastatin 5. Nausea and vomiting - Resolved 6. Mood disorder, depression - Continue Lexapro - Will add Remeron to help with mood and insomnia 7. GERD/hiatal hernia - Continue pantoprazole 8. Hypertension -Continue medications 9. Disposition - Will d/c in am - PCP contacted to arrange for Cardiology referral per Subjective 24 Hr Interval Summary Free Text/Dictation Patient still experiencing palpitations and sensation of throat closing up that wakes him up from sleep. Discussed with patient most likely secondary to stress and anxiety. No acute overnight events and no new issues. Exam/Review of Systems Vital Signs Vitals Vital Signs Date Time Temp Pulse Resp B/P Pulse Ox O2 Delivery O2 Flow Rate FiO2 01/26/17 16:22 64 01/26/17 15:20 98.7 18 100/62 96 01/26/17 13:42 21 01/23/17 00:10 Room Air Intake and Output 01/25/17 01/25/17 01/26/17 15:00 23:00 07:00 Intake Total 500 ml 600 ml 600 ml Balance 500 ml 600 ml 600 ml Exam General: Patient is laying in bed and answers questions appropriately Mentation: Patient is alert and oriented 4, Head: Normocephalic atraumatic Eyes: EOMI, pupils reactive to light Neck: Supple, nontender, midline Respiratory: Clear to auscultation bilaterally Cardiovascular: regular rate and rhythm, no obvious murmurs. no tenderness to palpation of chest wall Gastrointestinal: soft, nontender, nondistended, +BS, no rebound or guarding Results Result Diagram: 01/24/17 0746 01/26/17 0809 Results 24 hrs Laboratory Tests Test 01/26/17 08:09 Sodium Level 141 Potassium Level 3.8 Chloride Level 101 Carbon Dioxide Level 32 H Anion Gap 12 Blood Urea Nitrogen 16 Creatinine 1.10 Glucose Level 93 Calcium Level 8.9 Phosphorus Level 4.0 Magnesium Level 2.0 Albumin 3.4 Medications Medications Current Medications Ondansetron HCl (Zofran Inj) 4 mg Q6H PRN IV NAUSEA AND/OR VOMITING; Start at 18:30 Aspirin (Aspirin) 81 mg DAILY PO Last administered on 01/26/17 08:40; Admin Dose 81 MG; Start 01/19/17 at 09:00 Clopidogrel Bisulfate (plaVIX) 75 mg DAILY PO Last administered on 01/26/17 08:40; Admin Dose 75 MG; Start 01/18/17 at 18:30 Nitroglycerin (Nitroglycerin (Sl Tab) 0.4 Mg) 1 tab Q5M PRN SL CHEST PAIN; Start 01/18/17 at 18:30 Acetaminophen (Tylenol Tab) 650 mg Q6H PRN PO PAIN LEVEL 1-3 OR FEVER; Start 01/18/17 at 18:30 Acetaminophen/ Hydrocodone Bitart ([place] (5/325)) 1 tab Q6H PRN PO PAIN LEVEL 4 -6; Start 01/18/17 at 18:30 Morphine Sulfate (morphine) 2 mg Q4H PRN IV PAIN LEVEL 7-10 Last administered on 01/19/17 12:27; Admin Dose 2 MG; Start 01/18/17 at 18:30 Docusate Sodium (Colace) 100 mg Q12H PRN PO CONSTIPATION; Start 01/18/17 at 18 :30 Bisacodyl (Dulcolax) 5 mg DAILY PRN PO CONSTIPATION Last administered on 17:22; Admin Dose 5 MG; Start 01/18/17 at 18:30 Pantoprazole (Protonix Tab) 40 mg DAILY@06 PO Last administered on 01/23/17 05:29; Admin Dose 40 MG; Start 01/19/17 at 06:00 Enoxaparin Sodium (Lovenox) 40 mg DAILY SC Last administered on 01/26/17 08: 51; Admin Dose 40 MG; Start 01/19/17 at 09:00 Atorvastatin Calcium (Lipitor) 80 mg HS PO Last administered on 01/25/17 20: 34; Admin Dose 80 MG; Start 01/18/17 at 21:00 Escitalopram Oxalate (Lexapro) 20 mg DAILY PO Last administered on 01/26/17 08:41; Admin Dose 20 MG; Start 01/19/17 at 09:00 Gabapentin (Neurontin) 300 mg TID PO Last administered on 01/26/17 13:02; Admin Dose 300 MG; Start 01/18/17 at 21:00 Lorazepam (Ativan) 0.5 mg Q8H PRN IV anxiety; Start 01/19/17 at 12:00 Lisinopril (Zestril) 2.5 mg DAILY PO Last administered on 01/26/17 08:42; Admin Dose 2.5 MG; Start 01/20/17 at 09:00 Isosorbide Dinitrate (Isordil) 10 mg TID PO Last administered on 01/26/17 08: 41; Admin Dose 10 MG; Start 01/19/17 at 21:00 Carvedilol (Coreg) 3.125 mg BID PO Last administered on 01/26/17 08:41; Admin Dose 3.125 MG; Start 01/19/17 at 21:00 Sucralfate (Carafate Susp) 1 gm QID PO Last administered on 01/21/17 22:12; Admin Dose 1 GM; Start 01/21/17 at 17:00 Ranolazine (Ranexa) 500 mg Q12 PO Last administered on 01/26/17 08:40; Admin Dose 500 MG; Start 01/22/17 at 21:00 Mirtazapine (Remeron) 15 mg HS PO ; Start 01/26/17 at 21:00 CAITLIN LEIVA MD Jan 26, 2017 18:11
[2017-01-26] MEDS: ATORVASTATIN 80 MG TAB PO SCH (20:19)
[2017-01-26] MEDS: MIRTAZAPINE 15 MG TAB PO SCH (20:19)
[2017-01-27] VITALS (11 sets, daily range): BP systolic 91–111; BP diastolic 52–67; PULSE 57–73; RESP 17–20
[2017-01-27] MEDS: PANTOPRAZOLE (EC) 40 MG TAB PO SCH (05:47)
[2017-01-27] MEDS: ALBUTEROL/IPRATROPIUM (NEB) 3 ML AMP HHN SCH ×3 (07:58→21:34)
[2017-01-27] MEDS: ISOSORBIDE DINITRATE 10 MG TAB PO SCH ×3 (08:47→20:40)
[2017-01-27] MEDS: LISINOPRIL 5 MG TAB PO SCH (08:48)
[2017-01-27] MEDS: SUCRALFATE (100 MG/ML) 10ML CUP PO SCH ×4 (08:48→20:41)
[2017-01-27] MEDS: ESCITALOPRAM 10 MG TAB PO SCH (08:58)
[2017-01-27] MEDS: ASPIRIN 81 MG TAB PO SCH (08:58)
[2017-01-27] MEDS: GABAPENTIN 300 MG CAP PO SCH ×3 (08:58→20:40)
[2017-01-27] MEDS: CLOPIDOGREL 75 MG TAB PO SCH (08:59)
[2017-01-27] MEDS: RANOLAZINE (SR) 500 MG TAB PO SCH ×2 (08:59→20:40)
[2017-01-27] MEDS: ENOXAPARIN 40 MG/0.4 ML SYG SC SCH (09:20)
[2017-01-27 09:46] LABS: ALBUMIN 3.8 g/dl (3.3-4.9); CALCIUM 8.6 mg/dl (8.4-10.2); CREATININE 1.06 mg/dl (0.61-1.24); PHOSPHORUS 4.3 mg/dl (2.5-4.9); POTASSIUM 3.9 mmol/L (3.5-5.1)
[2017-01-27] MEDS ORDERED: DOCUSATE SODIUM 100 MG CAP PO PRN (11:00)
[2017-01-27] MEDS: POLYETHYLENE GLYCOL 17 GM PACKET PO SCH (11:11)
--- NOTE | 2017-01-27 15:57 | PN ---
Date/Time of Note Date/Time of Note DATE: 01/27/17 TIME: 15:54 Assessment/Plan VTE Prophylaxis VTE Prophylaxis Intervention: SCD's Lines/Catheters IV Catheter Type (from [facility] Urinary Cath still in place: No Assessment/Plan Assessment/Plan . Chest pain- ACS ruled out - Most likely anxiety and stress related as patient still experiencing palpitations and sensation of throat closing. On Remeron and doing well - Cardiology on board and recommendations appreciated. Trops negative and ECHO showed Ejection fraction 40-45 %. Abnormal Diastolic Function. These segments of the LV are hypokinetic apex. Stress test this am negative for any acute ischemia - Continue on Nitrate and Ranexa - Per CM patient can have PCP arrange follow up with risk manager as outpatient 2. Bradycardia - asymptomatic, but monitor 3. abdominal pain - CT abdomen/pelvis does not show any discrete findings, small hiatal hernia - US kidney shows indeterminate findings - patient allergic to contrast apparently, patient wishes to follow up with outpatient MRI instead of getting it done here 4. Dyslipidemia - continue on Atorvastatin 5. Nausea and vomiting - Resolved 6. Mood disorder, depression - Continue Lexapro - Tolerating Remeron and slept well last night 7. GERD/hiatal hernia - Continue pantoprazole 8. Hypertension -Continue medications 9. Disposition - Patient improving and agreeable for discharge tomorrow Subjective 24 Hr Interval Summary Free Text/Dictation Patient states he slept well last night after started on Remeron. Less frequent episodes of chest palpitations. No acute overnight events. Feels as if he will be ready for discharge tomorrow morning. Exam/Review of Systems Vital Signs Vitals Vital Signs Date Time Temp Pulse Resp B/P Pulse Ox O2 Delivery O2 Flow Rate FiO2 01/27/17 12:10 97.9 63 17 109/67 96 01/26/17 19:22 21 Intake and Output 01/26/17 01/26/17 01/27/17 15:00 23:00 07:00 Intake Total 1200 ml Balance 1200 ml Exam General: Patient is laying in bed and answers questions appropriately. no acute distress Mentation: Patient is alert and oriented 4, Head: Normocephalic atraumatic Eyes: EOMI, pupils reactive to light Neck: Supple, nontender, midline Respiratory: Clear to auscultation bilaterally. no wheezes or rhonchi Cardiovascular: regular rate and rhythm, no obvious murmurs. no tenderness to palpation of chest wall Gastrointestinal: soft, nontender, nondistended, +BS, no rebound or guarding Ext: moving all extremities. no cyanosis, edema, or clubbing Results Result Diagram: 01/24/17 0746 01/27/17 0740 Results 24 hrs Laboratory Tests Test 01/27/17 07:40 Sodium Level 140 Potassium Level 3.9 Chloride Level 101 Carbon Dioxide Level 29 Anion Gap 14 Blood Urea Nitrogen 15 Creatinine 1.06 Glucose Level 97 Calcium Level 8.6 Phosphorus Level 4.3 Magnesium Level 2.0 Albumin 3.8 Medications Medications Current Medications Ondansetron HCl (Zofran Inj) 4 mg Q6H PRN IV NAUSEA AND/OR VOMITING; Start at 18:30 Aspirin (Aspirin) 81 mg DAILY PO Last administered on 01/27/17 08:58; Admin Dose 81 MG; Start 01/19/17 at 09:00 Clopidogrel Bisulfate (plaVIX) 75 mg DAILY PO Last administered on 01/27/17 08:59; Admin Dose 75 MG; Start 01/18/17 at 18:30 Nitroglycerin (Nitroglycerin (Sl Tab) 0.4 Mg) 1 tab Q5M PRN SL CHEST PAIN; Start 01/18/17 at 18:30 Acetaminophen (Tylenol Tab) 650 mg Q6H PRN PO PAIN LEVEL 1-3 OR FEVER; Start 01/18/17 at 18:30 Acetaminophen/ Hydrocodone Bitart ([place] (5/325)) 1 tab Q6H PRN PO PAIN LEVEL 4 -6; Start 01/18/17 at 18:30 Morphine Sulfate (morphine) 2 mg Q4H PRN IV PAIN LEVEL 7-10 Last administered on 01/19/17 12:27; Admin Dose 2 MG; Start 01/18/17 at 18:30 Docusate Sodium (Colace) 100 mg Q12H PRN PO CONSTIPATION; Start 01/18/17 at 18 :30 Bisacodyl (Dulcolax) 5 mg DAILY PRN PO CONSTIPATION Last administered on 17:22; Admin Dose 5 MG; Start 01/18/17 at 18:30 Pantoprazole (Protonix Tab) 40 mg DAILY@06 PO Last administered on 01/27/17 05:47; Admin Dose 40 MG; Start 01/19/17 at 06:00 Enoxaparin Sodium (Lovenox) 40 mg DAILY SC Last administered on 01/27/17 09: 20; Admin Dose 40 MG; Start 01/19/17 at 09:00 Atorvastatin Calcium (Lipitor) 80 mg HS PO Last administered on 01/26/17 20: 19; Admin Dose 80 MG; Start 01/18/17 at 21:00 Escitalopram Oxalate (Lexapro) 20 mg DAILY PO Last administered on 01/27/17 08:58; Admin Dose 20 MG; Start 01/19/17 at 09:00 Gabapentin (Neurontin) 300 mg TID PO Last administered on 01/27/17 12:47; Admin Dose 300 MG; Start 01/18/17 at 21:00 Lorazepam (Ativan) 0.5 mg Q8H PRN IV anxiety; Start 01/19/17 at 12:00 Lisinopril (Zestril) 2.5 mg DAILY PO Last administered on 01/26/17 08:42; Admin Dose 2.5 MG; Start 01/20/17 at 09:00 Isosorbide Dinitrate (Isordil) 10 mg TID PO Last administered on 01/27/17 12: 49; Admin Dose 10 MG; Start 01/19/17 at 21:00 Carvedilol (Coreg) 3.125 mg BID PO Last administered on 01/26/17 08:41; Admin Dose 3.125 MG; Start 01/19/17 at 21:00 Sucralfate (Carafate Susp) 1 gm QID PO Last administered on 01/21/17 22:12; Admin Dose 1 GM; Start 01/21/17 at 17:00 Ranolazine (Ranexa) 500 mg Q12 PO Last administered on 01/27/17 08:59; Admin Dose 500 MG; Start 01/22/17 at 21:00 Mirtazapine (Remeron) 15 mg HS PO Last administered on 01/26/17 20:19; Admin Dose 15 MG; Start 01/26/17 at 21:00 Polyethylene Glycol (Miralax) 17 gm DAILY PO Last administered on 01/27/17 11 :11; Admin Dose 17 GM; Start 01/27/17 at 11:00 Docusate Sodium (Colace) 100 mg BID PRN PO CONSTIPATION; Start 01/27/17 at 11: 00 CAITLIN LEIVA MD Jan 27, 2017 15:57
--- NOTE | 2017-01-27 18:42 | CONS ---
Date/Time of Note Date/Time of Note DATE: 01/27/17 TIME: 18:40 Assessment/Plan Assessment/Plan Chief Complaint/Hosp Course IMPRESSION: 1. Chest pain, assess for acute coronary syndrome.-negative trop x 3. EF 40-45 % by echo. Now s/p lexiscan with no ischemia, only scar,EF 49% 2. Abnormal electrocardiogram with anteroseptal Q's and deep T-wave inversions anteriorly. 3. Status post recent left heart catheterization with percutaneous transluminal coronary angioplasty and stent placement at [facility]. 4. Status post recent myocardial infarction for which he received percutaneous transluminal coronary angioplasty and stent placement at [facility] in the last month. 5. Hypertension. 6. Bradycardia-stable. 7. Premature ventricular contractions. Recc: -Tele -serial ecg's -Continue coreg/zestril as tolerated -Contiue ranexa -Continue asa/plavix -started on remeron with improved sleep overnight -D/C planning from cardiac standpoint Problems: Consultation Date/Type/Reason Admit Date/Time Jan 18, 2017 at 17:46 Initial Consult Date 01/19/2017 Type of Consultation: cardiology Reason for Consultation chest pain Referring Provider: CALI MARQUIS MD Exam/Review of Systems Vital Signs Vitals Vital Signs Date Time Temp Pulse Resp B/P Pulse Ox O2 Delivery O2 Flow Rate FiO2 01/27/17 16:00 66 01/27/17 15:57 98.0 17 91/52 98 01/26/17 19:22 21 Intake and Output 01/26/17 01/26/17 01/27/17 15:00 23:00 07:00 Intake Total 1200 ml Balance 1200 ml Exam Review of Systems: CONSTITUTIONAL: No fevers, chills. PULMONARY: No sob CARDIOVASCULAR: No chest pain/palpitations GASTROINTESTINAL: No nausea/vomiting. GENITOURINARY: No hematuria/dysuria. MUSCULOSKELETAL: No myagias/arthalgias. PSYCHIATRIC: The patient denies depression. NEUROLOGIC: No weakness Constitutional: alert, oriented Psych: no complaints Head: normocephalic ENMT: mucosa pink and moist Neck: jvd (9 cm water), supple Respiratory: diminished breath sounds Cardiovascular: regular rate and rhythm Gastrointestinal: non-tender, soft Musculoskeletal: muscle tone (normal) Extremities: edema (none) Neurological: other (No focal deficits) Results Result Diagram: 01/24/17 0746 01/27/17 0740 Results 24 hrs Laboratory Tests Test 01/27/17 07:40 Sodium Level 140 Potassium Level 3.9 Chloride Level 101 Carbon Dioxide Level 29 Anion Gap 14 Blood Urea Nitrogen 15 Creatinine 1.06 Glucose Level 97 Calcium Level 8.6 Phosphorus Level 4.3 Magnesium Level 2.0 Albumin 3.8 Medications Medications Current Medications Ondansetron HCl (Zofran Inj) 4 mg Q6H PRN IV NAUSEA AND/OR VOMITING; Start at 18:30 Aspirin (Aspirin) 81 mg DAILY PO Last administered on 01/27/17 08:58; Admin Dose 81 MG; Start 01/19/17 at 09:00 Clopidogrel Bisulfate (plaVIX) 75 mg DAILY PO Last administered on 01/27/17 08:59; Admin Dose 75 MG; Start 01/18/17 at 18:30 Nitroglycerin (Nitroglycerin (Sl Tab) 0.4 Mg) 1 tab Q5M PRN SL CHEST PAIN; Start 01/18/17 at 18:30 Acetaminophen (Tylenol Tab) 650 mg Q6H PRN PO PAIN LEVEL 1-3 OR FEVER; Start 01/18/17 at 18:30 Acetaminophen/ Hydrocodone Bitart ([place] (5/325)) 1 tab Q6H PRN PO PAIN LEVEL 4 -6; Start 01/18/17 at 18:30 Morphine Sulfate (morphine) 2 mg Q4H PRN IV PAIN LEVEL 7-10 Last administered on 01/19/17 12:27; Admin Dose 2 MG; Start 01/18/17 at 18:30 Docusate Sodium (Colace) 100 mg Q12H PRN PO CONSTIPATION; Start 01/18/17 at 18 :30 Bisacodyl (Dulcolax) 5 mg DAILY PRN PO CONSTIPATION Last administered on 17:22; Admin Dose 5 MG; Start 01/18/17 at 18:30 Pantoprazole (Protonix Tab) 40 mg DAILY@06 PO Last administered on 01/27/17 05:47; Admin Dose 40 MG; Start 01/19/17 at 06:00 Enoxaparin Sodium (Lovenox) 40 mg DAILY SC Last administered on 01/27/17 09: 20; Admin Dose 40 MG; Start 01/19/17 at 09:00 Atorvastatin Calcium (Lipitor) 80 mg HS PO Last administered on 01/26/17 20: 19; Admin Dose 80 MG; Start 01/18/17 at 21:00 Escitalopram Oxalate (Lexapro) 20 mg DAILY PO Last administered on 01/27/17 08:58; Admin Dose 20 MG; Start 01/19/17 at 09:00 Gabapentin (Neurontin) 300 mg TID PO Last administered on 01/27/17 12:47; Admin Dose 300 MG; Start 01/18/17 at 21:00 Lorazepam (Ativan) 0.5 mg Q8H PRN IV anxiety; Start 01/19/17 at 12:00 Lisinopril (Zestril) 2.5 mg DAILY PO Last administered on 01/26/17 08:42; Admin Dose 2.5 MG; Start 01/20/17 at 09:00 Isosorbide Dinitrate (Isordil) 10 mg TID PO Last administered on 01/27/17 12: 49; Admin Dose 10 MG; Start 01/19/17 at 21:00 Carvedilol (Coreg) 3.125 mg BID PO Last administered on 01/26/17 08:41; Admin Dose 3.125 MG; Start 01/19/17 at 21:00 Sucralfate (Carafate Susp) 1 gm QID PO Last administered on 01/21/17 22:12; Admin Dose 1 GM; Start 01/21/17 at 17:00 Ranolazine (Ranexa) 500 mg Q12 PO Last administered on 01/27/17 08:59; Admin Dose 500 MG; Start 01/22/17 at 21:00 Mirtazapine (Remeron) 15 mg HS PO Last administered on 01/26/17 20:19; Admin Dose 15 MG; Start 01/26/17 at 21:00 Polyethylene Glycol (Miralax) 17 gm DAILY PO Last administered on 01/27/17 11 :11; Admin Dose 17 GM; Start 01/27/17 at 11:00 Docusate Sodium (Colace) 100 mg BID PRN PO CONSTIPATION; Start 01/27/17 at 11: 00 NILAM DOVER 30, 2017 18:42
[2017-01-27] MEDS: ATORVASTATIN 80 MG TAB PO SCH (20:40)
[2017-01-27] MEDS: MIRTAZAPINE 15 MG TAB PO SCH (20:40)
[2017-01-28] VITALS (9 sets, daily range): BP systolic 102–119; BP diastolic 58–80; PULSE 55–63; RESP 16–18
[2017-01-28] MEDS: PANTOPRAZOLE (EC) 40 MG TAB PO SCH (06:05)
[2017-01-28] MEDS: ALBUTEROL/IPRATROPIUM (NEB) 3 ML AMP HHN SCH ×2 (07:55→13:58)
[2017-01-28] MEDS: ESCITALOPRAM 10 MG TAB PO SCH (09:00)
[2017-01-28] MEDS: ISOSORBIDE DINITRATE 10 MG TAB PO SCH ×2 (09:00→12:07)
[2017-01-28] MEDS: SUCRALFATE (100 MG/ML) 10ML CUP PO SCH ×4 (09:00→15:35)
[2017-01-28] MEDS: ENOXAPARIN 40 MG/0.4 ML SYG SC SCH (09:00)
[2017-01-28] MEDS: LISINOPRIL 5 MG TAB PO SCH (09:00)
[2017-01-28] MEDS: RANOLAZINE (SR) 500 MG TAB PO SCH (09:00)
[2017-01-28] MEDS: CLOPIDOGREL 75 MG TAB PO SCH (09:00)
[2017-01-28] MEDS: GABAPENTIN 300 MG CAP PO SCH ×2 (09:00→12:07)
[2017-01-28] MEDS: POLYETHYLENE GLYCOL 17 GM PACKET PO SCH (09:00)
[2017-01-28] MEDS: ASPIRIN 81 MG TAB PO SCH (09:00)
--- NOTE | 2017-01-28 10:07 | PN ---
Date/Time of Note Date/Time of Note DATE: 01/28/17 TIME: 10:05 Assessment/Plan VTE Prophylaxis VTE Prophylaxis Intervention: SCD's Lines/Catheters IV Catheter Type (from Nrs): Saline Lock Urinary Cath still in place: No Assessment/Plan Assessment/Plan 1. Chest pain- ACS ruled out - Most likely anxiety and stress related as patient still experiencing palpitations and sensation of throat closing. On Remeron and tolerating medication well - Cardiology on board and recommendations appreciated. Trops negative and ECHO showed Ejection fraction 40-45 %. Abnormal Diastolic Function. These segments of the LV are hypokinetic apex. Stress test this am negative for any acute ischemia. clear from cardiac standpoint for d/c - Continue on Nitrate and Ranexa - Per CM patient can have PCP arrange follow up with parts salesperson as outpatient 2. Bradycardia - asymptomatic - no pacer needed at this time 3. abdominal pain - CT abdomen/pelvis does not show any discrete findings, small hiatal hernia. Will start on Zantac rather than Prilosec given on Plavix - Advised to follow up with PCP for referral to Surgery for inguinal hernia - US kidney shows indeterminate findings - patient allergic to contrast apparently, patient wishes to follow up with outpatient MRI instead of getting it done here 4. Dyslipidemia - continue on Atorvastatin 5. Nausea and vomiting - Resolved 6. Mood disorder, depression - Continue Lexapro - Tolerating Remeron 7. GERD/hiatal hernia - Switching to Zantac from PPI since on Plavix 8. Hypertension -Continue medications 9. Disposition - Medically stable for discharge home - Requesting HH prior to returning home. Subjective 24 Hr Interval Summary Free Text/Dictation Patient resting and states in no acute distress. Slept well last night and no overnight events. okay with discharge home today . Exam/Review of Systems Vital Signs Vitals Vital Signs Date Time Temp Pulse Resp B/P Pulse Ox O2 Delivery O2 Flow Rate FiO2 01/28/17 08:21 55 01/28/17 07:59 Room Air 01/28/17 07:35 98.3 16 119/80 97 01/27/17 21:35 21 Intake and Output 01/27/17 01/27/17 01/28/17 15:00 23:00 07:00 Intake Total 400 ml 700 ml Balance 400 ml 700 ml Exam General: Patient is laying in bed and answers questions appropriately. no acute distress Mentation: Patient is alert and oriented 4, Head: Normocephalic atraumatic Eyes: EOMI, pupils reactive to light Neck: Supple Respiratory: Clear to auscultation bilaterally. no wheezes or rhonchi Cardiovascular: regular rate and rhythm, no obvious murmurs. no tenderness to palpation of chest wall Gastrointestinal: soft, nontender, nondistended, +BS, no rebound or guarding Ext: moving all extremities. no cyanosis, edema, or clubbing Results Result Diagram: 01/24/17 0746 01/27/17 0740 Medications Medications Current Medications Ondansetron HCl (Zofran Inj) 4 mg Q6H PRN IV NAUSEA AND/OR VOMITING; Start at 18:30 Aspirin (Aspirin) 81 mg DAILY PO Last administered on 01/27/17 08:58; Admin Dose 81 MG; Start 01/19/17 at 09:00 Clopidogrel Bisulfate (plaVIX) 75 mg DAILY PO Last administered on 01/27/17 08:59; Admin Dose 75 MG; Start 01/18/17 at 18:30 Nitroglycerin (Nitroglycerin (Sl Tab) 0.4 Mg) 1 tab Q5M PRN SL CHEST PAIN; Start 01/18/17 at 18:30 Acetaminophen (Tylenol Tab) 650 mg Q6H PRN PO PAIN LEVEL 1-3 OR FEVER; Start 01/18/17 at 18:30 Acetaminophen/ Hydrocodone Bitart ([place] (5/325)) 1 tab Q6H PRN PO PAIN LEVEL 4 -6; Start 01/18/17 at 18:30 Morphine Sulfate (morphine) 2 mg Q4H PRN IV PAIN LEVEL 7-10 Last administered on 01/19/17 12:27; Admin Dose 2 MG; Start 01/18/17 at 18:30 Docusate Sodium (Colace) 100 mg Q12H PRN PO CONSTIPATION; Start 01/18/17 at 18 :30 Bisacodyl (Dulcolax) 5 mg DAILY PRN PO CONSTIPATION Last administered on 17:22; Admin Dose 5 MG; Start 01/18/17 at 18:30 Pantoprazole (Protonix Tab) 40 mg DAILY@06 PO Last administered on 01/28/17 06 :05; Admin Dose 40 MG; Start 01/19/17 at 06:00 Enoxaparin Sodium (Lovenox) 40 mg DAILY SC Last administered on 01/27/17 09: 20; Admin Dose 40 MG; Start 01/19/17 at 09:00 Atorvastatin Calcium (Lipitor) 80 mg HS PO Last administered on 01/27/17 20: 40; Admin Dose 80 MG; Start 01/18/17 at 21:00 Escitalopram Oxalate (Lexapro) 20 mg DAILY PO Last administered on 01/27/17 08:58; Admin Dose 20 MG; Start 01/19/17 at 09:00 Gabapentin (Neurontin) 300 mg TID PO Last administered on 01/27/17 20:40; Admin Dose 300 MG; Start 01/18/17 at 21:00 Lorazepam (Ativan) 0.5 mg Q8H PRN IV anxiety; Start 01/19/17 at 12:00 Lisinopril (Zestril) 2.5 mg DAILY PO Last administered on 01/26/17 08:42; Admin Dose 2.5 MG; Start 01/20/17 at 09:00 Isosorbide Dinitrate (Isordil) 10 mg TID PO Last administered on 01/27/17 20: 40; Admin Dose 10 MG; Start 01/19/17 at 21:00 Carvedilol (Coreg) 3.125 mg BID PO Last administered on 01/26/17 08:41; Admin Dose 3.125 MG; Start 01/19/17 at 21:00 Sucralfate (Carafate Susp) 1 gm QID PO Last administered on 01/21/17 22:12; Admin Dose 1 GM; Start 01/21/17 at 17:00 Ranolazine (Ranexa) 500 mg Q12 PO Last administered on 01/27/17 20:40; Admin Dose 500 MG; Start 01/22/17 at 21:00 Mirtazapine (Remeron) 15 mg HS PO Last administered on 01/27/17 20:40; Admin Dose 15 MG; Start 01/26/17 at 21:00 Polyethylene Glycol (Miralax) 17 gm DAILY PO Last administered on 01/27/17 11 :11; Admin Dose 17 GM; Start 01/27/17 at 11:00 Docusate Sodium (Colace) 100 mg BID PRN PO CONSTIPATION; Start 01/27/17 at 11: 00 CAITLIN LEIVA MD Jan 28, 2017 10:07
--- NOTE | 2017-01-28 12:57 | CONS ---
Date/Time of Note Date/Time of Note DATE: 01/28/17 TIME: 12:56 Assessment/Plan Assessment/Plan Chief Complaint/Hosp Course IMPRESSION: 1. Chest pain, assess for acute coronary syndrome.-negative trop x 3. EF 40-45 % by echo. Now s/p lexiscan with no ischemia, only scar,EF 49% 2. Abnormal electrocardiogram with anteroseptal Q's and deep T-wave inversions anteriorly. 3. Status post recent left heart catheterization with percutaneous transluminal coronary angioplasty and stent placement at [facility]. 4. Status post recent myocardial infarction for which he received percutaneous transluminal coronary angioplasty and stent placement at [facility] in the last month. 5. Hypertension. 6. Bradycardia-stable. 7. Premature ventricular contractions. Recc: -Tele -serial ecg's -Continue coreg/zestril as tolerated -Contiue ranexa -Continue asa/plavix -Continue remeron with improved sleep overnight -D/C planning from cardiac standpoint Problems: Consultation Date/Type/Reason Admit Date/Time Jan 18, 2017 at 17:46 Initial Consult Date 01/19/2017 Type of Consultation: cardiology Reason for Consultation chest pain Referring Provider: CAITLIN LEIVA MD Exam/Review of Systems Vital Signs Vitals Vital Signs Date Time Temp Pulse Resp B/P Pulse Ox O2 Delivery O2 Flow Rate FiO2 01/28/17 12:15 63 01/28/17 11:34 Room Air 01/28/17 11:26 98.0 16 112/71 98 01/27/17 21:35 21 Intake and Output 01/27/17 01/27/17 01/28/17 15:00 23:00 07:00 Intake Total 400 ml 700 ml Balance 400 ml 700 ml Exam Review of Systems: CONSTITUTIONAL: No fevers, chills. PULMONARY: No sob CARDIOVASCULAR: No chest pain/palpitations GASTROINTESTINAL: No nausea/vomiting. GENITOURINARY: No hematuria/dysuria. MUSCULOSKELETAL: No myagias/arthalgias. PSYCHIATRIC: The patient denies depression. NEUROLOGIC: No weakness Constitutional: alert Psych: no complaints Head: normocephalic ENMT: mucosa pink and moist Neck: jvd (9 cm wter), supple Respiratory: diminished breath sounds Cardiovascular: regular rate and rhythm Gastrointestinal: non-tender, soft Musculoskeletal: muscle tone (normal) Extremities: edema (none) Neurological: other (No focal deficits) Results Result Diagram: 01/24/17 0746 01/27/17 0740 Medications Medications Current Medications Ondansetron HCl (Zofran Inj) 4 mg Q6H PRN IV NAUSEA AND/OR VOMITING; Start at 18:30 Aspirin (Aspirin) 81 mg DAILY PO Last administered on 01/27/17 08:58; Admin Dose 81 MG; Start 01/19/17 at 09:00 Clopidogrel Bisulfate (plaVIX) 75 mg DAILY PO Last administered on 01/27/17 08:59; Admin Dose 75 MG; Start 01/18/17 at 18:30 Nitroglycerin (Nitroglycerin (Sl Tab) 0.4 Mg) 1 tab Q5M PRN SL CHEST PAIN; Start 01/18/17 at 18:30 Acetaminophen (Tylenol Tab) 650 mg Q6H PRN PO PAIN LEVEL 1-3 OR FEVER; Start 01/18/17 at 18:30 Acetaminophen/ Hydrocodone Bitart ([place] (5/325)) 1 tab Q6H PRN PO PAIN LEVEL 4 -6; Start 01/18/17 at 18:30 Morphine Sulfate (morphine) 2 mg Q4H PRN IV PAIN LEVEL 7-10 Last administered on 01/19/17 12:27; Admin Dose 2 MG; Start 01/18/17 at 18:30 Docusate Sodium (Colace) 100 mg Q12H PRN PO CONSTIPATION; Start 01/18/17 at 18 :30 Bisacodyl (Dulcolax) 5 mg DAILY PRN PO CONSTIPATION Last administered on 17:22; Admin Dose 5 MG; Start 01/18/17 at 18:30 Pantoprazole (Protonix Tab) 40 mg DAILY@06 PO Last administered on 01/28/17 06 :05; Admin Dose 40 MG; Start 01/19/17 at 06:00 Enoxaparin Sodium (Lovenox) 40 mg DAILY SC Last administered on 01/27/17 09: 20; Admin Dose 40 MG; Start 01/19/17 at 09:00 Atorvastatin Calcium (Lipitor) 80 mg HS PO Last administered on 01/27/17 20: 40; Admin Dose 80 MG; Start 01/18/17 at 21:00 Escitalopram Oxalate (Lexapro) 20 mg DAILY PO Last administered on 01/27/17 08:58; Admin Dose 20 MG; Start 01/19/17 at 09:00 Gabapentin (Neurontin) 300 mg TID PO Last administered on 01/28/17 12:07; Admin Dose 300 MG; Start 01/18/17 at 21:00 Lorazepam (Ativan) 0.5 mg Q8H PRN IV anxiety; Start 01/19/17 at 12:00 Lisinopril (Zestril) 2.5 mg DAILY PO Last administered on 01/26/17 08:42; Admin Dose 2.5 MG; Start 01/20/17 at 09:00 Isosorbide Dinitrate (Isordil) 10 mg TID PO Last administered on 01/28/17 12: 07; Admin Dose 10 MG; Start 01/19/17 at 21:00 Carvedilol (Coreg) 3.125 mg BID PO Last administered on 01/26/17 08:41; Admin Dose 3.125 MG; Start 01/19/17 at 21:00 Sucralfate (Carafate Susp) 1 gm QID PO Last administered on 01/21/17 22:12; Admin Dose 1 GM; Start 01/21/17 at 17:00 Ranolazine (Ranexa) 500 mg Q12 PO Last administered on 01/27/17 20:40; Admin Dose 500 MG; Start 01/22/17 at 21:00 Mirtazapine (Remeron) 15 mg HS PO Last administered on 01/27/17 20:40; Admin Dose 15 MG; Start 01/26/17 at 21:00 Polyethylene Glycol (Miralax) 17 gm DAILY PO Last administered on 01/27/17 11 :11; Admin Dose 17 GM; Start 01/27/17 at 11:00 Docusate Sodium (Colace) 100 mg BID PRN PO CONSTIPATION; Start 01/27/17 at 11: 00 NILAM DOVER Jan 28, 2017 12:57
[2017-01-28] MEDS ORDERED: MIRT15TA5 PO (13:39)
[2017-01-28] MEDS ORDERED: CLOP75TA28 PO (13:39)
[2017-01-28] MEDS ORDERED: ATOR80TA75 PO (13:39)
[2017-01-28] MEDS ORDERED: RANO500T2 PO (13:39)
[2017-01-28] MEDS ORDERED: ISOS10TA2 PO (13:39)
[2017-01-28] MEDS ORDERED: ESCI20TA38 PO (13:39)
[2017-01-28] MEDS ORDERED: CARV3.1260 PO (13:39)
[2017-01-28] MEDS ORDERED: RANI150T9 PO (13:39)
[2017-01-28] MEDS ORDERED: GABA300C16 PO (13:39)
[2017-01-28] MEDS ORDERED: LISI-313 PO (13:39)
--- NOTE | 2017-01-28 13:59 | PDOCDIS ---
Discharge Instructions DIAGNOSIS Discharge Diagnosis 1. Chest pain- noncardiac etiology 2. Bradycardia- asymptomatic 3. Dyslipidemia 4. Mood disorder 5. GERD/hiatal hernia 6. Hypertension CONDITION Patient Condition: Fair HOME CARE INSTRUCTIONS: Diet Instructions: Low Fat /CholesterolSpecial Diet: cardiac diet ACTIVITY: Activity Restrictions: No Restrictions FOLLOW UP/APPOINTMENTS Follow-up Plan 1. Follow up with your primary care physician in 1 week 2. Make sure your PCP arranges a referral to the [facility] since you will need to have one follow you as an outpatient 3. Continue medications as prescribed. You were started on new medications for your heart 4. Take Remeron as needed at night to help you sleep 5. You will need a MRI of your abdomen to evaluate your kidneys. 6. You will need an outpatient referral from your PCP to a surgeon for repair of your left inguinal hernia if you would like to pursue repair. 7. If your symptoms return or worsen, please return to the ED CAITLIN LEIVA MD Jan 28, 2017 13:59
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
== END 2017-01-28 19:25 | disposition home or self-care (01) | DRG 313 ==
LOC: E/R 15:06 → MS3 17:46 → TEL 01-19 21:23
PROVIDERS: ADMIT Internal Medicine; ATTEND Internal Medicine
PROC: C22G1ZZ Tomographic (Tomo) Nuclear Medicine Imaging of Myocardium using Technetium 99m (Tc-99m) (ICD-10-PCS; principal; 2017-01-25)
PROC: 4A02XM4 Measurement of Cardiac Total Activity, External Approach (ICD-10-PCS; 2017-01-25)
PROC: 3E073KZ Introduction of Other Diagnostic Substance into Coronary Artery, Percutaneous Approach (ICD-10-PCS; 2017-01-25)
DX: R07.89 Other chest pain (principal); I25.2 Old myocardial infarction; I10 Essential (primary) hypertension; I25.119 Atherosclerotic heart disease of native coronary artery with unspecified angina pectoris; E78.5 Hyperlipidemia, unspecified; Z95.5 Presence of coronary angioplasty implant and graft; Z79.82 Long term (current) use of aspirin; Z79.02 Long term (current) use of antithrombotics/antiplatelets; F32.9 Major depressive disorder, single episode, unspecified; K21.9 Gastro-esophageal reflux disease without esophagitis; F17.200 Nicotine dependence, unspecified, uncomplicated; I49.3 Ventricular premature depolarization; R00.1 Bradycardia, unspecified; R11.2 Nausea with vomiting, unspecified; K44.9 Diaphragmatic hernia without obstruction or gangrene; R10.9 Unspecified abdominal pain
CPT/HCPCS: 36415; 71010; 74176; 76775; 78452; 80048; 80053; 80061; 80069; 80164; 82550; 82553; 82962; 83036; 83735; 83880; 84100; 84443; 84484; 85025; 85610; 85730; 90686; 93005; 93017; 93306; 94640; 94664; 97161; 97166; A9500; A9505; J1650; J2270; J2405; J2785; J3475; J3480; J7030; Q9967